=== PATIENT | male | born 1990 | race African-American/Black ===

== ENCOUNTER 2020-11-07 13:50 | Outpatient (CLI) | payer OTHER ==
[2020-11-07 14:32] LABS: BASOPHILS # (AUTO) 0.1 10^3/uL (0.0-0.1); BASOPHILS % (AUTO) 0.6 %; EOSINOPHILS # (AUTO) 0.2 10^3/uL (0.0-0.7); EOSINOPHILS % (AUTO) 2.1 %; HCT - HEMATOCRIT 36.9 % (42.0-52.0); LYMPHOCYTES # (AUTO) 2.5 10^3/uL (1.5-3.5); LYMPHOCYTES % (AUTO) 23.1 %; MEAN CORPUSCULAR HEMOGLOBIN 26.9 pg (27.0-31.0); MEAN CORPUSCULAR HGB CONC 32.5 g/dL (32.0-36.0); MEAN CORPUSCULAR VOLUME 82.7 fL (80.0-94.0); MEAN PLATELET VOLUME 10.9 fL (7.4-11.4); MONOCYTES # (AUTO) 0.8 10^3/uL (0.0-1.0); MONOCYTES % (AUTO) 7.8 %; NEUTROPHILS # (AUTO) 7.2 10^3/uL (1.5-6.6); NEUTROPHILS % (AUTO) 66.1 %; PLT - PLATELET COUNT 362 10^3/uL (130-450); RED BLOOD COUNT 4.46 10^6/uL (4.70-6.10); RED CELL DISTRIBUTION WIDTH 13.2 % (12.0-15.0); WHITE BLOOD COUNT 10.8 x10^3/uL (4.8-10.8)
[2020-11-07 14:40] LABS: ALBUMIN 3.6 g/dL (3.2-5.5); ALBUMIN/GLOBULIN RATIO 0.9 (1.0-2.2); BILIRUBIN,TOTAL 0.2 mg/dL (0.2-1.0); CALCIUM 9.3 mg/dL (8.5-10.3); CREATININE 1.5 mg/dL (0.6-1.2); TOTAL PROTEIN 7.4 g/dL (6.7-8.2)
[2020-11-07 20:23] LABS: ESTIMATED AVERAGE GLUCOSE 171 mg/dL (70-100); HEMOGLOBIN A1c% 7.6 % (4.27-6.07)
== END 2020-11-07 23:59 | disposition home or self-care (01) ==
LOC: LAB.R 13:50
PROVIDERS: ATTEND Registered Nurse
DX: R79.89 Other specified abnormal findings of blood chemistry (principal); R68.89 Other general symptoms and signs; R73.09 Other abnormal glucose
CPT/HCPCS: 80053; 83036; 85025

== ENCOUNTER 2020-11-12 09:50 | Outpatient (CLI) | payer OTHER ==
[2020-11-12 10:54] LABS: % IRON SATURATION 29 % (20-50); IRON 78 ug/dL (45-182); TOTAL IRON BINDING CAPACITY 265 ug/dL (250-450); TRANSFERRIN 189 mg/dL (180-329)
== END 2020-11-12 23:59 | disposition home or self-care (01) ==
LOC: LAB.R 09:50
PROVIDERS: ATTEND Registered Nurse
DX: R79.89 Other specified abnormal findings of blood chemistry (principal); D58.2 Other hemoglobinopathies; E61.1 Iron deficiency
CPT/HCPCS: 82728; 83540; 84466; 85018

== ENCOUNTER 2022-12-11 14:01 | Emergency (ER) | payer MEDICAID ==
[2022-12-11] MEDS ORDERED: SODIUM CHLORIDE 0.9% 1,000 ML IV STA ×3 (14:23→16:41)
--- NOTE | 2022-12-11 14:40 | ED Physician Documentation ---
History of Present Illness - Stated complaint Stated Complaint: VOMITING - Chief complaint Chief Complaint: Abd Pain - History obtained from History obtained from: Patient - History of Present Illness Timing: How many days ago (3) Pain level max: 3 Pain level now: 2 - Additonal information Additional information: Patient is a 32-year-old male who presents to the emergency department with nausea and vomiting today. Started 3 days ago after using marijuana. He is diabetic and has not been checking his blood sugars. Patient states that he uses marijuana twice daily. He denies any recent travel, antibiotic use. No diarrhea or constipation. He is on insulin 70/30 at home. Review of Systems Constitutional: denies: Fever, Chills Respiratory: denies: Dyspnea, Cough GI: reports: Abdominal Pain (Mild epigastric pain.), Nausea, Vomiting. denies: Diarrhea, Hematemesis, Bloody / black stool PD PAST MEDICAL HISTORY - Past Medical History Past Medical History: Yes Cardiovascular: Hypertension, High cholesterol Endocrine/Autoimmune: Type 2 diabetes - Past Surgical History Past Surgical History: No - Present Medications Home Medications: Ambulatory Orders Medication Instructions Recorded Confirmed Ondansetron Odt [Zofran] 4 mg TL Q6H PRN #20 tablet 12/11/22 - Allergies Allergies/Adverse Reactions: Allergies Allergy/AdvReac Type Severity Reaction Status Date / Time diphenhydramine Allergy Edema Verified 12/11/22 14:18 [From Benadryl] Iodinated Contrast Media Allergy Edema Verified 12/11/22 14:18 shellfish derived Allergy Edema Verified 12/11/22 14:18 PD ED PE NORMAL - Vitals Vital signs reviewed: Yes - General General: Alert and oriented X 3, No acute distress - HEENT HEENT: PERRL, Moist mucous membranes - Neck Neck: Supple, no meningeal sign - Cardiac Cardiac: RRR, Strong equal pulses - Respiratory Respiratory: No respiratory distress, Clear bilaterally - Abdomen Abdomen: Soft, Non tender, Non distended - Back Back: No CVA TTP, No spinal TTP - Derm Derm: Warm and dry, No rash - Extremities Extremities: No edema, No calf tenderness / cord - Neuro Neuro: Alert and oriented X 3 - Psych Psych: Normal mood, Normal affect Results - Vitals Vitals: Vital Signs - 24 hr 12/11/22 12/11/22 12/11/22 14:14 15:08 17:43 Temperature 36.4 C L Heart Rate 109 H 81 101 H Respiratory 18 18 18 Rate Blood Pressure 157/95 H 160/94 H 197/105 H O2 Saturation 99 100 100 Oxygen O2 Source Room air - Labs Labs: Laboratory Tests 12/11/22 12/11/22 12/11/22 14:20 14:49 14:49 WBC 10.7 RBC 5.31 Hgb 13.4 L Hct 42.6 MCV 80.2 MCH 25.2 L MCHC 31.5 L RDW 13.2 Plt Count 334 MPV 12.5 H Neut # (Auto) 8.0 H Lymph # (Auto) 2.0 [place] # (Auto) 0.6 Eos # (Auto) 0.1 Baso # (Auto) 0.0 Absolute Nucleated RBC 0.00 Nucleated RBC % 0.0 VBG pH VBG pCO2 VBG pO2 VBG HCO3 VBG Total CO2 VBG O2 Saturation VBG Base Excess Sodium 137 Potassium 4.3 Chloride 98 L Carbon Dioxide 25 Anion Gap 14.0 H BUN 15 Creatinine 1.8 H Estimated GFR (MDRD) 53 L Glucose 501 H* POC Whole Bld Glucose 469 H Calcium 9.3 Total Bilirubin 0.8 AST 21 ALT 32 Alkaline Phosphatase 103 Total Protein 7.8 Albumin 3.1 L Globulin 4.7 H Albumin/Globulin Ratio 0.7 L Lipase 28 Urine Color Urine Clarity Urine pH Ur Specific [place] Urine Protein Urine Glucose (UA) Urine Ketones Urine Occult Blood Urine Nitrite Urine Bilirubin Urine Urobilinogen Ur Leukocyte Esterase Urine RBC Urine WBC Ur Squamous Epith Cells Urine Bacteria Urine Casts Ur Microscopic Review Urine Culture Comments Serum Ketones SMALL H 12/11/22 12/11/22 12/11/22 14:49 16:15 16:55 WBC RBC Hgb Hct MCV MCH MCHC RDW Plt Count MPV Neut # (Auto) Lymph # (Auto) [place] # (Auto) Eos # (Auto) Baso # (Auto) Absolute Nucleated RBC Nucleated RBC % VBG pH 7.331 VBG pCO2 46.0 VBG pO2 34.8 VBG HCO3 23.8 VBG Total CO2 25.2 VBG O2 Saturation 67.1 VBG Base Excess -2.4 L Sodium Potassium Chloride Carbon Dioxide Anion Gap BUN Creatinine Estimated GFR (MDRD) Glucose POC Whole Bld Glucose 347 H Calcium Total Bilirubin AST ALT Alkaline Phosphatase Total Protein Albumin Globulin Albumin/Globulin Ratio Lipase Urine Color YELLOW Urine Clarity HAZY Urine pH 5.5 Ur Specific [place] 1.020 Urine Protein 100 H Urine Glucose (UA) >=1000 H Urine Ketones >=80 H Urine Occult Blood SMALL H Urine Nitrite NEGATIVE Urine Bilirubin NEGATIVE Urine Urobilinogen 0.2 (NORMAL) Ur Leukocyte Esterase NEGATIVE Urine RBC 0-5 Urine WBC 0-3 Ur Squamous Epith Cells FEW Squamous Urine Bacteria Few Urine Casts 3-5 Hyaline Casts Ur Microscopic Review INDICATED Urine Culture Comments NOT INDICATED Serum Ketones PD Medical Decision Making - ED course Complexity details: reviewed results, re-evaluated patient, considered differential, d/w patient, d/w family ED course: 32-year-old male with a history of diabetes presents with vomiting. He does use marijuana twice daily. He has not had any fevers. He was given droperidol and IV fluids. Nausea and vomiting resolved. Abdominal pain resolved. He was given insulin IV and subcu. Blood sugar decreased from 500 down to 340. He is not significantly acidotic. Did have a small ketones. No significant anion gap. As his other symptoms have resolved and is tolerating p.o. without difficulty we will have him continue to monitor his blood sugars at home and have him resume his normal insulin. We will have him follow-up with his doctor for further care. Patient will return if he worsens. Patient counseled regarding signs and symptoms for which I believe and urgent re-evaluation would be necessary. Patient with good understanding of and agreement to plan and is comfortable going home at this time This document was made in part using voice recognition software. While efforts are made to proofread this document, sound alike and grammatical errors may occur. Departure - Departure Disposition: 01 Home, Self Care Clinical Impression: Hyperglycemia Vomiting Qualifiers: Vomiting type: unspecified Nausea presence: with nausea Qualified Code(s): R11.2 - Nausea with vomiting, unspecified Condition: Good Instructions: ED Hyperglycemia Diabetic, ED Nausea Vomiting Follow-Up: Your,doctor in 3 days [Other] Prescriptions: Ondansetron Odt [Zofran] 4 mg TL Q6H PRN #20 tablet PRN Reason: Nausea / Vomiting Comments: Go home and rest today. Resume your normal insulin. Please follow-up with your doctor for further care. Please return if you worsen including further vomiting, abdominal pain, fevers or other new or worrisome symptoms. Your prescriptions were sent to [facility] in [place]. Discharge Date/Time: 12/11/22 17:43
[2022-12-11] MEDS ORDERED: DROPERIDOL 5 MG/2 ML VIAL IVP STA (14:52)
[2022-12-11 15:01] LABS: BASOPHILS % (AUTO) 0.3 %; EOSINOPHILS # (AUTO) 0.1 10^3/uL (0.0-0.7); EOSINOPHILS % (AUTO) 0.8 %; HCT - HEMATOCRIT 42.6 % (42.0-52.0); HGB - HEMOGLOBIN 13.4 g/dL (14.0-18.0); LYMPHOCYTES % (AUTO) 18.6 %; MEAN CORPUSCULAR HEMOGLOBIN 25.2 pg (27.0-31.0); MEAN CORPUSCULAR HGB CONC 31.5 g/dL (32.0-36.0); MEAN CORPUSCULAR VOLUME 80.2 fL (80.0-94.0); MEAN PLATELET VOLUME 12.5 fL (7.4-11.4); MONOCYTES # (AUTO) 0.6 10^3/uL (0.0-1.0); MONOCYTES % (AUTO) 5.5 %; NEUTROPHILS % (AUTO) 74.3 %; PLT - PLATELET COUNT 334 10^3/uL (130-450); RED BLOOD COUNT 5.31 10^6/uL (4.70-6.10); RED CELL DISTRIBUTION WIDTH 13.2 % (12.0-15.0); WHITE BLOOD COUNT 10.7 x10^3/uL (4.8-10.8)
[2022-12-11 15:04] LABS: VBG HCO3 23.8 mmol/L (23-28); VBG PH 7.331 (7.31-7.41); VBG PO2 34.8 mmHg (25-47); VBG TOTAL CO2 25.2 mmol/L (24-29)
[2022-12-11 15:05] LABS: VBG BASE EXCESS -2.4 mmol/L (-2 - +2); VBG OXYGEN SATURATION 67.1 % (60-80)
[2022-12-11 15:06] LABS: KETONES, SERUM (ACETEST) SMALL (NEGATIVE)
[2022-12-11 15:19] LABS: ALBUMIN 3.1 g/dL (3.2-5.5); ALBUMIN/GLOBULIN RATIO 0.7 (1.0-2.2); ALKALINE PHOSPHATASE 103 IU/L (42-121); ALT ALANINE AMINOTRANSFERASE 32 IU/L (10-60); AST ASPARTATE AMINOTRANSFERASE 21 IU/L (10-42); BILIRUBIN,TOTAL 0.8 mg/dL (0.2-1.0); BUN - BLOOD UREA NITROGEN 15 mg/dL (6-20); CALCIUM 9.3 mg/dL (8.5-10.3); CARBON DIOXIDE - CO2 25 mmol/L (21-32); CHLORIDE 98 mmol/L (101-111); CREATININE 1.8 mg/dL (0.6-1.2); GFR - MDRD 53 (>89); LIPASE 28 U/L (22-51); POTASSIUM 4.3 mmol/L (3.5-5.0); SODIUM 137 mmol/L (135-145); TOTAL PROTEIN 7.8 g/dL (6.7-8.2)
[2022-12-11 15:21] LABS: GLUCOSE 501 mg/dL (70-100)
[2022-12-11] MEDS ORDERED: INSULIN REGULAR HUMAN 300 UNIT/3 ML VIAL SUBQ STA (15:43)
[2022-12-11] MEDS ORDERED: INSULIN REGULAR HUMAN 300 UNIT/3 ML VIAL IVP ONE (15:43)
[2022-12-11 16:25] LABS: BILIRUBIN,URINE NEGATIVE (NEGATIVE); GLUCOSE, URINE (UA) >=1000 mg/dL (NEGATIVE); KETONES,URINE (UA) >=80 mg/dL (NEGATIVE); LEUKOCYTE ESTERASE, URINE NEGATIVE (NEGATIVE); NITRITE,URINE NEGATIVE (NEGATIVE); OCCULT BLOOD,URINE SMALL (NEGATIVE); PH,URINE 5.5 PH (5.0-7.5); PROTEIN,URINE 100 mg/dL (NEGATIVE); UROBILINOGEN,URINE 0.2 (NORMAL) E.U./dL (NORMAL)
[2022-12-11 16:27] LABS: CLARITY,URINE HAZY (CLEAR)
[2022-12-11 16:44] LABS: BACTERIA,URINE Few /HPF (None Seen); CASTS, URINE 3-5 Hyaline Casts /LPF; RBC,URINE 0-5 /HPF (0-5); SQUAMOUS EPITHELIAL CELL,UR FEW Squamous (<= Few); WBC,URINE 0-3 /HPF (0-3)
[2022-12-11 17:45] VITALS: BP 197/105
== END 2022-12-11 17:43 | disposition home or self-care (01) ==
LOC: ED 14:01
DX: E11.65 Type 2 diabetes mellitus with hyperglycemia (principal); R11.2 Nausea with vomiting, unspecified; I10 Essential (primary) hypertension
CPT/HCPCS: 36415; 80053; 81001; 82009; 82803; 83690; 85025; 96361; 96374; 99283; 99284; J1815; 81003; 87086

== ENCOUNTER 2022-12-23 23:40 | Outpatient (CLI) | payer MEDICAID | END 2022-12-23 23:59 | disposition critical access hospital (66) | LOC: EMS 23:40 | DX: E11.65 Type 2 diabetes mellitus with hyperglycemia (principal); R41.0 Disorientation, unspecified; R53.83 Other fatigue; R52 Pain, unspecified; R00.0 Tachycardia, unspecified | CPT/HCPCS: A0425; A0427; A0999 ==

== ENCOUNTER 2022-12-23 23:58 | Inpatient (IN) | payer MEDICAID ==
--- NOTE | 2022-12-24 00:14 | ED Physician Documentation ---
History of Present Illness - Stated complaint Stated Complaint: AMS HIGH BS - History obtained from History obtained from: EMS - Additonal information Additional information: Patient is brought in by ambulance. HPI is from EMS. Patient is unable to contribute to HPI/ROS due to AMS. Per EMS report, patient's brother said that the patient had been complaining of upper abdominal pain and was exhibiting decreasing mental status today. EMS arrived to find patient drowsy and oriented x1. Patient is diabetic. Fingerstick blood sugar by EMS is greater than 600. Review of Systems Unable to obtain: AMS PD PAST MEDICAL HISTORY - Past Medical History Cardiovascular: Hypertension, High cholesterol Endocrine/Autoimmune: Type 2 diabetes - Past Surgical History Past Surgical History: No - Present Medications Home Medications: Ambulatory Orders Medication Instructions Recorded Confirmed Ondansetron Odt [Zofran] 4 mg TL Q6H PRN #20 tablet 12/11/22 - Allergies Allergies/Adverse Reactions: Allergies Allergy/AdvReac Type Severity Reaction Status Date / Time diphenhydramine Allergy Edema Verified 12/24/22 00:18 [From Benadryl] Iodinated Contrast Media Allergy Edema Verified 12/24/22 00:18 shellfish derived Allergy Edema Verified 12/24/22 00:18 PD ED PE NORMAL - Vitals Vital signs reviewed: Yes - General General: No acute distress, Well developed/nourished, Other (Drowsy, awakens briefly to voice but occasionally needs gentle tactile stimulus to awaken. Falls asleep repeatedly and rapidly. Answers some questions very briefly with mumbling answers. He is able to give me his last name, knows he is in a hospital but not which one, has no guess as to wha) - HEENT HEENT: PERRL, EOMI, Other (parched mucous membranes) - Cardiac Cardiac: No murmur - Respiratory Respiratory: No respiratory distress, Clear bilaterally - Abdomen Abdomen: Soft, Non tender - Derm Derm: Normal color, Warm and dry - Extremities Extremities: No edema PD ED PE EXPANDED - Cardiac Cardiac: Tachy, Regular Rhythm - GCS Eye Opening: To Voice Motor: Obeys Commands (obeys few commands) Verbal: Incomprehensible Total: 11 Results - Vitals Vitals: Oxygen O2 Source Room air - Labs Labs: Laboratory Tests 12/24/22 12/24/22 12/24/22 01:45 01:45 04:04 WBC 23.2 H RBC 5.84 Hgb 14.7 Hct 49.8 MCV 85.3 MCH 25.2 L MCHC 29.5 L RDW 15.0 Plt Count 373 MPV 13.2 H Neut # (Auto) Not Reportable Lymph # (Auto) Not Reportable [place] # (Auto) Not Reportable Eos # (Auto) Not Reportable Baso # (Auto) Not Reportable Absolute Nucleated RBC Not Reportable Total Counted 100 Band Neuts % (Manual) 2 Abnorm Lymph % (Manual) 0 Metamyelocytes % 1 H Myelocytes % 1 H Nucleated RBC % Not Reportable Neutrophils # (Manual) 20.6 H Lymphocytes # (Manual) 1.9 Monocytes # (Manual) 0.0 Eosinophils # (Manual) 0.2 Basophils # (Manual) 0.0 Differential Comment MANUAL DIFFERENTIAL Platelet Estimate NORMAL (130-450,000) RBC Morph Micro Appear NORMAL APPEARANCE VBG pH 7.203 L VBG pCO2 39.4 L VBG pO2 37.5 VBG HCO3 15.2 L VBG Total CO2 16.4 L VBG O2 Saturation 69.0 VBG Base Excess -12.2 L Sodium 138 Potassium 5.5 H Chloride 102 Carbon Dioxide 12 L* Anion Gap 24.0 H BUN 77 H Creatinine 4.0 H Estimated GFR (MDRD) 21 L Glucose 1234 H* Calcium 9.8 Total Bilirubin 1.5 H AST 11 ALT 20 Alkaline Phosphatase 127 H Troponin I High Sens Total Protein 8.2 Albumin 3.1 L Globulin 5.1 H Albumin/Globulin Ratio 0.6 L Lipase 39 Serum Ketones MODERATE H 12/24/22 12/24/22 12/24/22 04:04 05:30 06:24 WBC RBC Hgb Hct MCV MCH MCHC RDW Plt Count MPV Neut # (Auto) Lymph # (Auto) [place] # (Auto) Eos # (Auto) Baso # (Auto) Absolute Nucleated RBC Total Counted Band Neuts % (Manual) Abnorm Lymph % (Manual) Metamyelocytes % Myelocytes % Nucleated RBC % Neutrophils # (Manual) Lymphocytes # (Manual) Monocytes # (Manual) Eosinophils # (Manual) Basophils # (Manual) Differential Comment Platelet Estimate RBC Morph Micro Appear VBG pH VBG pCO2 VBG pO2 VBG HCO3 VBG Total CO2 VBG O2 Saturation VBG Base Excess Sodium 146 H 146 H 148 H Potassium 4.2 3.9 3.8 Chloride 110 113 H 113 H Carbon Dioxide 17 L 19 L 21 Anion Gap 19.0 H 14.0 H 14.0 H BUN 76 H 72 H 73 H Creatinine 3.9 H 3.7 H 3.7 H Estimated GFR (MDRD) 22 L 23 L 23 L Glucose 1041 H* 912 H* 866 H* Calcium 9.7 9.7 9.8 Total Bilirubin AST ALT Alkaline Phosphatase Troponin I High Sens Total Protein Albumin Globulin Albumin/Globulin Ratio Lipase Serum Ketones 12/24/22 12/24/22 07:32 07:33 WBC RBC Hgb Hct MCV MCH MCHC RDW Plt Count MPV Neut # (Auto) Lymph # (Auto) [place] # (Auto) Eos # (Auto) Baso # (Auto) Absolute Nucleated RBC Total Counted Band Neuts % (Manual) Abnorm Lymph % (Manual) Metamyelocytes % Myelocytes % Nucleated RBC % Neutrophils # (Manual) Lymphocytes # (Manual) Monocytes # (Manual) Eosinophils # (Manual) Basophils # (Manual) Differential Comment Platelet Estimate RBC Morph Micro Appear VBG pH VBG pCO2 VBG pO2 VBG HCO3 VBG Total CO2 VBG O2 Saturation VBG Base Excess Sodium 148 H Potassium 4.6 Chloride 114 H Carbon Dioxide 21 Anion Gap 13.0 BUN 75 H Creatinine 3.6 H Estimated GFR (MDRD) 24 L Glucose 844 H* Calcium 10.0 Total Bilirubin AST ALT Alkaline Phosphatase Troponin I High Sens 48.9 H* Total Protein Albumin Globulin Albumin/Globulin Ratio Lipase Serum Ketones PD Medical Decision Making - ED course Complexity details: reviewed results, re-evaluated patient, considered differential, d/w family (mother of patient arrives later in ED stay, says patient has not been eating all day but drinking more fluids than usual) ED course: Patient presents with severely altered mental status and fingerstick that is g reater than 600 by EMS. He is found to be in DKA. He has significant leukocytosis (WBC 23.2). His serum glucose on the ER abdominal panel is 1234, potassium is 5.5, CO2 12. He has significantly elevated BUN (77) and creatinine (4.0). Serum ketones return as moderate. VBG was unable to be obtained due to patient being a difficult stick. He arrived with an IV in place by EMS, but the nurses had difficulty getting a second IV placed (which was also challenging with the volume of patients in the emergency department and limited staff available). Shortly after the second IV was placed, the patient, who remained confused, ripped out this second IV. Soft restraints (nonviolent) placed on bilateral upper extremities for this reason. And insulin drip is started after a 0.1 unit/kg bolus of regular insulin is given. 3 L normal saline bolus is also ordered and administered. I put in a request for a telehealth consult to get this patient admitted at 03:08. I contacted the telehealth service for [facility] at 03:38 to inquire as to why I had not heard from telehealth practitioner. I was told that they were very busy and had several patients to get admitted to other hospitals before they could get to my patient. Approximately 10 minutes later, my REGIONAL ENVIRONMENTAL MANAGER received a call from the telehealth service informing her that they would not be able to get to this patient and recommended holding the patient until the dayshift hospitalist can be consulted. Thus, although there are beds available in [facility], patient will be held for at least another 3 hours in the emergency department waiting for the daytime hospitalist. 06:20: patient is becoming more awake and alert but also remains confused, appears anxious. He is given 1mg IV lorazepam for anxiolysis. Note that, 0605, I ordered 0.45% saline with 20 mEq KCl to be given over 2 hours. The decision to switch to half-normal saline is based on the corrected sodium (based on the blood test results from 5:30 AM), with the corrected sodium level being 162. I was then informed that we do not have this available premixed, and there is no pharmacist in-house at this hour. Thus, I canceled that order and am instead ordering normal saline with 20 mEq KCl over 2 hours. - Critical Care Time(min): 60 Time Includes: Direct patient care, Review records, Reassess patient, Document care, Coordinate care, Family consult for tx dec, See progress note Data interpretation: Labs, Pulse ox, CXR, See progress note Procedures included in critical care time: See progress note Procedures excluded from critical care time: See progress note Departure - Departure Disposition: 66 [facility] DC/Xfer Clinical Impression: Diabetic ketoacidosis Qualifiers: Diabetes mellitus type: type 1 Diabetes mellitus complication detail: without coma Qualified Code(s): E10.10 - Type 1 diabetes mellitus with ketoacidosis without coma Condition: Serious Discharge Date/Time: 12/24/22 08:57
[2022-12-24] MEDS ORDERED: INSULIN REGULAR HUMAN 300 UNIT/3 ML VIAL IVP STA (00:20)
[2022-12-24] MEDS ORDERED: INSULIN REGULAR IN 0.9 % NS 100 UNIT/100 ML BAG IV STA (00:20)
[2022-12-24] MEDS: SODIUM CHLORIDE 0.9% 1,000 ML IV SCH ×3 (00:39→02:43)
[2022-12-24 02:00] LABS: BASOPHILS % (AUTO) 0.2 %; HCT - HEMATOCRIT 49.8 % (42.0-52.0); HGB - HEMOGLOBIN 14.7 g/dL (14.0-18.0); LYMPHOCYTES % (AUTO) 3.7 %; MEAN CORPUSCULAR HEMOGLOBIN 25.2 pg (27.0-31.0); MEAN CORPUSCULAR HGB CONC 29.5 g/dL (32.0-36.0); MEAN CORPUSCULAR VOLUME 85.3 fL (80.0-94.0); MEAN PLATELET VOLUME 13.2 fL (7.4-11.4); MONOCYTES % (AUTO) 3.9 %; NEUTROPHILS % (AUTO) 91.2 %; PLT - PLATELET COUNT 373 10^3/uL (130-450); RED BLOOD COUNT 5.84 10^6/uL (4.70-6.10); WHITE BLOOD COUNT 23.2 x10^3/uL (4.8-10.8)
[2022-12-24 02:02] LABS: ABNORMAL LYMPHS % (MANUAL) 0 %
[2022-12-24 02:22] LABS: BAND NEUTROPHILS % (MANUAL) 2 %; DIFFERENTIAL COMMENT MANUAL DIFFERENTIAL; EOSINOPHILS # (MANUAL) 0.2 10^3/uL (0-0.7); LYMPHOCYTES # (MANUAL) 1.9 10^3/uL (1.5-3.5); LYMPHOCYTES % (MANUAL) 8 %; METAMYELOCYTES % (MANUAL) 1 %; MYELOCYTES % (MANUAL) 1 %; NEUTROPHILS # (MANUAL) 20.6 10^3/uL (1.5-6.6); PLATELET ESTIMATE, MANUAL NORMAL (130-450,000) (NORMAL); RBC MORPHOLOGY (MULTIPLE) NORMAL APPEARANCE (NORMAL)
[2022-12-24 03:04] LABS: ALBUMIN 3.1 g/dL (3.2-5.5); ALBUMIN/GLOBULIN RATIO 0.6 (1.0-2.2); ALKALINE PHOSPHATASE 127 IU/L (42-121); ALT ALANINE AMINOTRANSFERASE 20 IU/L (10-60); AST ASPARTATE AMINOTRANSFERASE 11 IU/L (10-42); BILIRUBIN,TOTAL 1.5 mg/dL (0.2-1.0); BUN - BLOOD UREA NITROGEN 77 mg/dL (6-20); CALCIUM 9.8 mg/dL (8.5-10.3); CHLORIDE 102 mmol/L (101-111); GFR - MDRD 21 (>89); LIPASE 39 U/L (22-51); POTASSIUM 5.5 mmol/L (3.5-5.0); SODIUM 138 mmol/L (135-145); TOTAL PROTEIN 8.2 g/dL (6.7-8.2)
[2022-12-24 03:07] LABS: CARBON DIOXIDE - CO2 12 mmol/L (21-32); GLUCOSE 1234 mg/dL (70-100)
[2022-12-24 03:11] LABS: KETONES, SERUM (ACETEST) MODERATE (NEGATIVE)
[2022-12-24 04:09] LABS: VBG BASE EXCESS -12.2 mmol/L (-2 - +2); VBG HCO3 15.2 mmol/L (23-28); VBG PCO2 39.4 mmHg (41-51); VBG PH 7.203 (7.31-7.41); VBG PO2 37.5 mmHg (25-47); VBG TOTAL CO2 16.4 mmol/L (24-29)
[2022-12-24 04:25] LABS: CALCIUM 9.7 mg/dL (8.5-10.3); CREATININE 3.9 mg/dL (0.6-1.2); POTASSIUM 4.2 mmol/L (3.5-5.0)
[2022-12-24 05:51] LABS: CALCIUM 9.7 mg/dL (8.5-10.3); CREATININE 3.7 mg/dL (0.6-1.2); POTASSIUM 3.9 mmol/L (3.5-5.0)
[2022-12-24] MEDS ORDERED: POTASSIUM CHLORIDE INJ 20 MEQ in SODIUM CHLORIDE 0.45% 1,000 ML IV STA (06:05)
[2022-12-24] MEDS ORDERED: LORazepam 2 MG/ML VIAL IVP STA (06:28)
[2022-12-24] MEDS ORDERED: NS W/20 MEQ KCL 1,000 ML IV STA (06:47)
[2022-12-24 06:48] LABS: CALCIUM 9.8 mg/dL (8.5-10.3); CREATININE 3.7 mg/dL (0.6-1.2); POTASSIUM 3.8 mmol/L (3.5-5.0)
[2022-12-24 07:50] LABS: CREATININE 3.6 mg/dL (0.6-1.2); POTASSIUM 4.6 mmol/L (3.5-5.0)
[2022-12-24] MEDS ORDERED: ONDANSETRON ODT 4 MG TABLET TL PRN (08:02)
[2022-12-24] MEDS ORDERED: oxyCODONE 5 MG TABLET PO PRN (08:02)
[2022-12-24] MEDS ORDERED: ONDANSETRON 4 MG/2 ML VIAL IVP PRN (08:02)
[2022-12-24] MEDS ORDERED: ACETAMINOPHEN 325 MG TABLET PO PRN (08:02)
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
[2022-12-24] MEDS ORDERED: SODIUM CHLORIDE 0.9% 1,000 ML IV SCH (12:00)
[2022-12-24] MEDS: SODIUM CHLORIDE FLUSH 0.9% 10 ML SYRINGE IVP SCH ×3 (12:11→20:55)
[2022-12-24] MEDS: ENOXAPARIN 40 MG/0.4 ML SYRINGE SUBQ SCH (12:11)
[2022-12-24] MEDS: INSULIN REGULAR HUMAN 100 UNIT in SODIUM CHLORIDE 0.9% 100ML 99 ML IV SCH ×2 (12:25→17:13)
[2022-12-24] MEDS: DEXTROSE 5%-0.9% NACL 1,000 ML IV SCH ×2 (12:28→18:18)
[2022-12-24 13:27] LABS: POTASSIUM 4.9 mmol/L (3.5-5.0)
[2022-12-24] MEDS: POTASSIUM CHLOR 10 MEQ/100 ML 10 MEQ/100 ML BAG IV SCH ×4 (13:57→18:51)
[2022-12-24] MEDS: hydrALAZINE INJ 20 MG/ML VIAL IVP SCH ×3 (14:13→20:50)
--- NOTE | 2022-12-24 15:10 | MISCELLANEOUS PROVIDER NOTE ---
Miscellaneous Provider Note - - Note: December 24, 2022 3:09 PM I can hear patient yelling as if he echoes through the hallway. When I go investigate it Mr. Doss. He says he wants some help. But he cannot tell me what he wants. I asked him if he wants clothing, food, pain medicine, ice cream, anything. And he just says in a very frustrated voice "I just want you to help me". He is oriented to the fact that he is in the hospital. He knows that his would be. He knows that he is here because of DKA. Ativan 0.5 mg every 2 hours as needed agitation prescribed.
[2022-12-24] MEDS ORDERED: METOPROLOL 5 MG/5 ML VIAL IVP PRN (15:12)
[2022-12-24 15:16] LABS: MUDS CUTOFF CONCENTRATIONS CUTOFF CONC BELOW:
[2022-12-24 15:28] LABS: AMPHETAMINE SCREEN,URINE NEGATIVE (NEGATIVE); BARBITURATE SCREEN,UR NEGATIVE (NEGATIVE); BENZODIAZEPINES SCREEN, URINE NEGATIVE (NEGATIVE); COCAINE SCREEN URINE NEGATIVE (NEGATIVE); METHADONE SCREEN, URINE NEGATIVE (NEGATIVE); METHAMPHETAMINES SCREEN, URINE NEGATIVE (NEGATIVE); OPIATE SCREEN, URINE NEGATIVE (NEGATIVE); OXYCODONE SCREEN, URINE NEGATIVE (NEGATIVE); PROPOXYPHENE SCREEN, URINE NEGATIVE (NEGATIVE); THC CANNABINOID SCREEN, URINE POSITIVE (NEGATIVE); TRICYCLIC ANTIDEPRESSANT,URINE NEGATIVE (NEGATIVE)
[2022-12-24] MEDS: LORazepam 2 MG/ML VIAL IVP PRN ×3 (15:37→21:39)
[2022-12-24 18:55] LABS: ALBUMIN 2.9 g/dL (3.2-5.5); ALBUMIN/GLOBULIN RATIO 0.7 (1.0-2.2); BILIRUBIN,TOTAL 0.6 mg/dL (0.2-1.0); CALCIUM 9.5 mg/dL (8.5-10.3); CREATININE 3.1 mg/dL (0.6-1.2); POTASSIUM 4.1 mmol/L (3.5-5.0); TOTAL PROTEIN 7.2 g/dL (6.7-8.2)
[2022-12-24] MEDS: DEXTROSE 5% 1,000 ML IV SCH (19:37)
[2022-12-24 20:37] LABS: BILIRUBIN,URINE NEGATIVE (NEGATIVE); GLUCOSE, URINE (UA) >=1000 mg/dL (NEGATIVE); KETONES,URINE (UA) TRACE mg/dL (NEGATIVE); LEUKOCYTE ESTERASE, URINE NEGATIVE (NEGATIVE); NITRITE,URINE NEGATIVE (NEGATIVE); OCCULT BLOOD,URINE SMALL (NEGATIVE); PROTEIN,URINE 100 mg/dL (NEGATIVE); UROBILINOGEN,URINE 0.2 (NORMAL) E.U./dL (NORMAL)
[2022-12-24 20:44] LABS: CLARITY,URINE HAZY (CLEAR)
[2022-12-24 20:48] LABS: RBC,URINE 0-5 /HPF (0-5); SQUAMOUS EPITHELIAL CELL,UR NONE SEEN (<= Few); WBC,URINE 0-3 /HPF (0-3)
[2022-12-24 20:49] LABS: AMORPHOUS SEDIMENT,UR Few /LPF; BACTERIA,URINE Few /HPF (None Seen); CASTS, URINE 11-25 Fine Granular /LPF
[2022-12-24] MEDS ORDERED: INSULIN LISPRO 300 UNIT/3 ML PEN SUBQ SCH (21:00)
[2022-12-24] MEDS ORDERED: INSULIN GLARGINE-YFGN 300 UNIT/3 ML PEN SUBQ SCH (21:00)
[2022-12-24] MEDS: SODIUM CHLORIDE FLUSH 0.9% 10 ML SYRINGE IVP PRN (21:43)
[2022-12-25] MEDS: LORazepam 2 MG/ML VIAL IVP PRN (03:07)
[2022-12-25] MEDS: SODIUM CHLORIDE FLUSH 0.9% 10 ML SYRINGE IVP PRN ×2 (03:14→03:22)
[2022-12-25] MEDS: DEXTROSE 5% 1,000 ML IV SCH ×5 (03:46→21:40)
[2022-12-25 04:47] LABS: BASOPHILS % (AUTO) 0.3 %; EOSINOPHILS # (AUTO) 0.1 10^3/uL (0.0-0.7); EOSINOPHILS % (AUTO) 0.4 %; HCT - HEMATOCRIT 42.6 % (42.0-52.0); HGB - HEMOGLOBIN 14.1 g/dL (14.0-18.0); LYMPHOCYTES # (AUTO) 1.8 10^3/uL (1.5-3.5); LYMPHOCYTES % (AUTO) 11.4 %; MEAN CORPUSCULAR HGB CONC 33.1 g/dL (32.0-36.0); MEAN CORPUSCULAR VOLUME 78.5 fL (80.0-94.0); MEAN PLATELET VOLUME 12.3 fL (7.4-11.4); MONOCYTES # (AUTO) 1.4 10^3/uL (0.0-1.0); MONOCYTES % (AUTO) 8.7 %; NEUTROPHILS # (AUTO) 12.6 10^3/uL (1.5-6.6); NEUTROPHILS % (AUTO) 78.9 %; NRBC ABSOLUTE COUNT (AUTO) 0.03 x10^3/uL; NUCLEATED RED BLOOD CELLS AUTO 0.2 /100WBC; PLT - PLATELET COUNT 229 10^3/uL (130-450); RED BLOOD COUNT 5.43 10^6/uL (4.70-6.10); RED CELL DISTRIBUTION WIDTH 15.1 % (12.0-15.0)
[2022-12-25 05:09] LABS: CALCIUM 9.2 mg/dL (8.5-10.3); CREATININE 2.7 mg/dL (0.6-1.2); MAGNESIUM 2.6 mg/dL (1.7-2.8); POTASSIUM 4.1 mmol/L (3.5-5.0)
[2022-12-25 05:13] LABS: CALCIUM, IONIZED 1.28 mmol/L (1.15-1.33); VBG PH 7.355 (7.31-7.41)
--- NOTE | 2022-12-25 07:48 | XRAY Report ---
PROCEDURE: Chest 1 View X-Ray INDICATIONS: leukocytosis TECHNIQUE: One view of the chest was acquired. COMPARISON: None. FINDINGS: Surgical changes and devices: None. Lungs and pleura: No pleural effusions or pneumothorax. Lungs are clear. Mediastinum: Mediastinal contours appear normal. Heart size is normal. Bones and chest wall: No suspicious bony lesions. Overlying soft tissues appear unremarkable. IMPRESSION: No acute process. Reviewed by: Emma Da Silva MD on 12/25/2022 7:46 AM PDT Approved by: Emma Da Silva MD on 12/25/2022 7:46 AM PDT Station ID: [id number]
[2022-12-25] MEDS ORDERED: INSULIN GLARGINE-YFGN 300 UNIT/3 ML PEN SUBQ SCH ×2 (08:00→21:00)
[2022-12-25] MEDS: ENOXAPARIN 40 MG/0.4 ML SYRINGE SUBQ SCH (08:24)
[2022-12-25] MEDS: SODIUM CHLORIDE FLUSH 0.9% 10 ML SYRINGE IVP SCH ×2 (08:58→16:19)
[2022-12-25] MEDS: hydrALAZINE INJ 20 MG/ML VIAL IVP SCH ×3 (08:58→21:40)
[2022-12-25] MEDS: INSULIN REGULAR HUMAN 300 UNIT/3 ML VIAL SUBQ SCH ×4 (09:05→23:31)
[2022-12-25] MEDS: POTASSIUM PHOSPHATE 15 MMOL in DEXTROSE 5% 250 ML IV SCH ×2 (10:54→16:00)
[2022-12-25 13:21] LABS: CALCIUM 8.8 mg/dL (8.5-10.3); CREATININE 2.6 mg/dL (0.6-1.2); POTASSIUM 4.4 mmol/L (3.5-5.0)
--- NOTE | 2022-12-25 13:54 | PROVIDER PROGRESS NOTE ---
Progress Note December 25, 2022 1:01 PM Since I ordered Ativan yesterday, he has received 4 doses of 0.5 mg IV push. Last dose was 3 in the morning. He has been sleeping all day long. He cannot stay awake long enough to eat. He keeps on saying that he would like to go home but we have explained to him that he needs to stay awake long enough to eat, shows that he has the wherewithal to get up and walk to a bathroom and get back in bed. So far he has been unable to do that. He still continues to pull at his IV line. Yesterday afternoon, in spite of be ing in restraints, he leaned down, and using his teeth pulled out his IV. This morning he has 1 IV left in the right arm. The left arm IV has blown. I have seen him 3 times today. With the dictation of this note, he is sitting upright in bed, staring out the window, sleepy. This is in spite of my reordering restraints. Active Medications Acetaminophen (Acetaminophen 325 Mg Tablet) 650 mg PO Q4HR PRN PRN Reason: Pain 1 to 4, or Fever Enoxaparin Sodium (Enoxaparin 40 Mg/0.4 Ml Syringe) 40 mg SUBQ DAILY [facility] Last Admin: 12/25/22 08:24 Dose: 40 mg Hydralazine HCl (Hydralazine Inj 20 Mg/Ml Vial) 10 mg IVP QID [facility] Last Admin: 12/25/22 08:58 Dose: 10 mg Dextrose (D5w) 1,000 mls @ 200 mls/hr IV .Q5H [facility] Last Admin: 12/25/22 08:40 Dose: 200 mls/hr Potassium Phosphate 15 mmol/ (Dextrose) 255 mls @ 63.75 mls/hr IV Q4H [facility] Stop: 12/25/22 18:59 Last Admin: 12/25/22 10:54 Dose: 63.75 mls/hr Insulin Glargine-yfgn (Insulin Glargine-Yfgn 300 Unit/3 Ml Pen) 10 unit SUBQ QDBREAKFAST [facility] Last Admin: 12/25/22 08:36 Dose: 10 unit Insulin Glargine-yfgn (Insulin Glargine-Yfgn 300 Unit/3 Ml Pen) 25 unit SUBQ QPM [facility] Last Admin: 12/24/22 20:55 Dose: 25 unit Insulin Human Regular (Insulin Regular Human 300 Unit/3 Ml Vial) 2 - 10 unit SUBQ Q6HR [facility]; Protocol Last Admin: 12/25/22 11:55 Dose: 10 unit Lorazepam (Lorazepam 2 Mg/Ml Vial) 0.5 mg IVP Q2H PRN PRN Reason: Anxiety Last Admin: 12/25/22 03:07 Dose: 0.5 mg Metoprolol Tartrate (Metoprolol 5 Mg/5 Ml Vial) 5 mg IVP Q6H PRN PRN Reason: Hypertensive Emergency Last Admin: 12/25/22 03:21 Dose: 5 mg Ondansetron HCl (Ondansetron Odt 4 Mg Tablet) 4 mg TL Q6HR PRN PRN Reason: Nausea / Vomiting Ondansetron HCl (Ondansetron 4 Mg/2 Ml Vial) 4 mg IVP Q6HR PRN PRN Reason: Nausea / Vomiting Oxycodone HCl (Oxycodone 5 Mg Tablet) 5 mg PO Q4HR PRN PRN Reason: Pain 5 to 7 Last Admin: 12/25/22 06:22 Dose: 5 mg Sodium Chloride (Sodium Chloride Flush 0.9% 10 Ml Syringe) 10 ml IVP 0100,0900,1700 [facility] Last Admin: 12/25/22 08:58 Dose: 10 ml Sodium Chloride (Sodium Chloride Flush 0.9% 10 Ml Syringe) 10 ml IVP PRN PRN PRN Reason: NEEDED PER PROVIDER ORDERS Last Admin: 12/25/22 03:22 Dose: 10 ml Exam: Temperature is 36.8. He is consistently tachycardic since 4:00 this morning. Heart rate varies between 105-114. Blood pressure 141/103. 13 respiration, 96% on room air. I have seen him twice this morning and both times he is asleep, flat on his back, snoring. He does awaken to my voice and does respond with yes no answers, but goes right back to sleep in the time I can get him awake to examine him. Skin is warm and dry. Neck is supple without JVD Lungs are clear. Again snoring. But no crackles rhonchi or wheezing or increased respiratory effort or respiratory distress Regular rate and rhythm that is tachycardic Abdomen is soft, nontender, quiet bowel sounds, last bowel movement December 21. He is incontinent of urine, wearing a diaper. Extremities are without edema. He has full range of motion. Neurologically intermittently alert and awake. Usually sleeping. Responds to my voice, will respond to commands. He has stopped yelling "help" the way he did yesterday. No focal deficits, no tremors, no diaphoresis. Glucose: Insulin drip discontinued approximately 6 PM yesterday Once he went below 200. Started on Lantus 25 and then sliding scale insulin before meals even though he is not eating. Glucose subsequent to that was 171, 107. Glucose this morning 247, glucose before lunch 363. He received 10 units of Humalog for that. The serum blood draw for the fingerstick was 429. Sodium went to 157 yesterday. I started him back on a D5 at 125 cc an hour. This morning sodium is 155. This afternoon he is 150. Anion gap started at 24 on admission with his DKA. This morning his anion gap is 6 and 5. His anion gap has been normal since yesterday. I interpret this as diabetes mellitus that may not be completely controlled but from a metabolic acidosis perspective he is stable. He was in acute renal failure on admission with a creatinine of 4. Creatinine has steadily come down with IV fluids and control of glucose. By this afternoon creatinine is 2.6. BUN is 49 with this. Calcium is 9.2, phosphorus is low at 1.0 Magnesium 2.6 Lactic acid 2.3 yesterday afternoon (he is on metformin at home) I did not recheck his lactic acid. His anion gap is closed, his CO2 is normal. I will presume that his lactic acid is now normal. A1c ordered for tomorrow. Troponin 48.9>> 55.0>> 54.4 Conclusion/Plan - Problem List (1) Diabetic ketoacidosis Conclusion/Plan: He was admitted to ICU when he was on the insulin drip. I am now going to transition him to MedSurg status. I have asked for central line from the ER provider but he feels that the patient has to peripheral IVs that should be adequate. However nursing reports that he is a very difficult blood draw. He is down to 1 IV. So far that is maintaining. However if he pulls this out will need another IV. I am hoping to avoid calling anesthesia for a midline. Currently on Lantus 25 units in the evening, 10 units subcu in the morning. He is also on moderate sliding scale. He is able to swallow, and is asking for liquids. So far he cannot stay awake long enough to eat his food.The cause of his DKA was noncompliance with medication. When he was sent home from [facility] 2 weeks ago, his family reports that he is not taking any of his insulin. I did check troponins he is not having an ID. I did a work-up for the leukocytosis present yesterday, He does not have pneumonia he does not have a UTI. Abdominal exam is benign.EKG had normal sinus rhythm. T waves were diffusely inverted. I attribute that to metabolic causes and not ischemia. Plan: Check A1c in a.m. Increase Lantus to 30 units subcu at night, and 15 units in the morning Increase sliding scale insulin to high sliding scale Pharmacy will verify what medications the patient is on. The family mentions blood pressure, diabetes, but they do not bring in the bottles nor do they remember the names. I spoke to the pharmacist. I think the most he is going to be able to do is call the [facility] and see if they have any medications on this gentleman. Encouraged him to stay awake, and to eat. I have told him that until he can eat, and demonstrate that he is awake enough and alert enough to be able to walk to the bathroom by himself, he cannot be discharged Qualifiers: Diabetes mellitus type: type 1 Diabetes mellitus complication detail: without coma Qualified Code(s): E10.10 - Type 1 diabetes mellitus with ketoacidosis without coma (2) Acute on chronic renal failure Conclusion/Plan: Appears to have already had chronic kidney disease with his visit in 2020. With his visit in the emergency room earlier this month was slightly worsening at 1.8. With this admission he is clearly in acute on chronic renal failure most likely due to prerenal azotemia and not obstruction. Nevertheless I will check renal ultrasound to make sure he is not obstructed Follow BMP daily Avoid nephrotoxic agents. I was considering giving him enalapril to control his blood pressure but in the face of acute renal failure I would like to avoid LACIE inhibitors. Qualifiers: Acute renal failure type: with acute tubular necrosis Chronic kidney diseas e stage: stage 3 (moderate) Chronic kidney disease stage 3 subtype: unspecified whether 3a or 3b Qualified Code(s): N17.0 - Acute kidney failure with tubular necrosis; N18.30 - Chronic kidney disease, stage 3 unspecified (3) Leukocytosis Conclusion/Plan: The emergency room provider had focused on the patient's DKA and its treatment. I will try and figure out why the patient went into DKA. By history, is because of noncompliance. He has not taken any of his insulin since he has been home from [facility]. But with a leukocytosis of 1 to make sure that he does not have a UTI or pneumonia. As such I will be checking chest x-ray and urinalysis. Qualifiers: Leukocytosis type: leukemoid reaction Qualified Code(s): D72.823 - Leukemoid reaction (4) Hypertension Conclusion/Plan: This gentleman is a diabetic, and hypertensive. His brother does not know if the patient is on blood pressure pills or not but the patient does have a history of high blood pressure. I had hoped to start him on an LACIE inhibitor, but with his renal function so badly affected, I will hold off on that. Plan: Lopressor 5 mg IV push as needed systolic greater than 160. Once he is awake, alert, and creatinine has come down below 2, will start losartan or Vasotec Qualifiers: Hypertension type: renovascular hypertension Qualified Code(s): I15.0 - Renovascular hypertension (5) Encephalopathy acute Conclusion/Plan: My suspicion is the worsening dehydration, and DKA has caused this problem. His family states that he is usually a independent gentleman, can feed himself, dress himself. Thought process is usually lucid, and able to problem solve. Yesterday,he was lethargic, occasionally opening his eyes, and does things like in having to get up and urinate, he would pull down his diaper and urinate spontaneously with urine going all over the bed, the patient, the floor and the nurse. He needs intermittent prompts to stay in bed. He continues to need prompting for safety reasons. He keeps on wanting to try and get out of bed. He is still sleepy. I have asked nursing to avoid more than 2 doses of Ativan at night. He has not received anything this morning. his mother and brother were at the bedside this afternoon. They really are worried about his sleeping and his snoring. By later in the afternoon he was more awake. He still keeps on trying to get out of bed. Still keeps on trying to pull out his IV. Mom really wanted him to get a bath and insisted that nursing getting him up and in the shower. I said no. When he is fully awake, we can get him in the shower then. Because we can stop his IV, etc. Before right now with his lethargy he is at increased risk for falling. Mom says she could take it and she would get him in the shower and I again I said no. Plan: I have reordered another 24 hours of Soft upper extremity restraints until patient is more awake and alert. He has poor safety awareness, keeps on pulling out lines
--- NOTE | 2022-12-25 17:08 | Ultrasound Report ---
PROCEDURE: Retroperitoneal INDICATIONS: acute renal failure TECHNIQUE: Real-time scanning was performed of the retroperitoneal organs, with image documentation. COMPARISON: None. FINDINGS: Kidneys: Kidneys are normal in size. Right kidney measures 10.0 cm long; left kidney measures 10.2 cm long. Right renal cortical thickness is 1.8 cm; left renal cortical thickness is 2.1 cm. No paulo d masses, hydronephrosis, or nephrolithiasis. The left kidney was difficult to evaluate due to patie nt condition in the ICU with cooperation. Bladder: Pre-void bladder volume is 218 mL. Pre-images demonstrate no intraluminal masses or stones. On pre-void images, bilateral ureteral jets are noted with color Doppler interrogation. (Of note, ureteral jets may not be detectable in up to 25% of cases due to insufficient differences in specific gravity between ureteral and bladder urine). Miscellaneous: No free abdominal fluid. IMPRESSION: No acute ultrasound abnormality of the kidneys bilaterally. The left kidney was difficult to evaluate , however there is no hydronephrosis or gross abnormality. Reviewed by: Missael Redmond on 12/25/2022 4:06 PM JACY Approved by: Missael Redmond on 12/25/2022 4:06 PM JACY Station ID: [id number]
[2022-12-25] MEDS ORDERED: INSULIN LISPRO 300 UNIT/3 ML PEN SUBQ STA (17:16)
[2022-12-26] MEDS ORDERED: POTASSIUM PHOSPHATE 15 MMOL in SODIUM CHLORIDE 0.9% 250 ML IV ONE ×2 (02:17→08:00)
[2022-12-26] MEDS: SODIUM CHLORIDE FLUSH 0.9% 10 ML SYRINGE IVP SCH ×3 (03:08→17:36)
[2022-12-26] MEDS: DEXTROSE 5% 1,000 ML IV SCH ×2 (04:45→13:50)
[2022-12-26 06:00] LABS: CALCIUM, IONIZED 1.24 mmol/L (1.15-1.33); VBG PH 7.373 (7.31-7.41)
[2022-12-26 06:04] LABS: BASOPHILS % (AUTO) 0.2 %; EOSINOPHILS # (AUTO) 0.2 10^3/uL (0.0-0.7); EOSINOPHILS % (AUTO) 2.1 %; HCT - HEMATOCRIT 37.8 % (42.0-52.0); HGB - HEMOGLOBIN 12.1 g/dL (14.0-18.0); LYMPHOCYTES # (AUTO) 2.1 10^3/uL (1.5-3.5); LYMPHOCYTES % (AUTO) 18.7 %; MEAN CORPUSCULAR HEMOGLOBIN 25.2 pg (27.0-31.0); MEAN CORPUSCULAR VOLUME 78.8 fL (80.0-94.0); MEAN PLATELET VOLUME 13.4 fL (7.4-11.4); MONOCYTES # (AUTO) 0.8 10^3/uL (0.0-1.0); MONOCYTES % (AUTO) 7.3 %; NEUTROPHILS % (AUTO) 71.1 %; NRBC ABSOLUTE COUNT (AUTO) 0.05 x10^3/uL; NUCLEATED RED BLOOD CELLS AUTO 0.4 /100WBC; PLT - PLATELET COUNT 210 10^3/uL (130-450); RED CELL DISTRIBUTION WIDTH 14.4 % (12.0-15.0); WHITE BLOOD COUNT 11.2 x10^3/uL (4.8-10.8)
[2022-12-26] MEDS: INSULIN REGULAR HUMAN 300 UNIT/3 ML VIAL SUBQ SCH (06:04)
[2022-12-26 06:10] LABS: MAGNESIUM 2.2 mg/dL (1.7-2.8)
[2022-12-26 06:15] LABS: CALCIUM 8.9 mg/dL (8.5-10.3); CREATININE 2.2 mg/dL (0.6-1.2); POTASSIUM 3.8 mmol/L (3.5-5.0)
--- NOTE | 2022-12-26 07:27 | PROVIDER PROGRESS NOTE ---
Subjective - Prog Note Date Prog Note Date: 12/26/22 Prog Note Time: 07:26 - Subjective Subjective: He has become more awake. He is now taking sips of fluid. More appropriate and a normal conversation. More lucid. I was able to stop the D5 drip for the hyper natremia last night. Right before I left shift, his sodium was 151. I instructed nursing to stop the D5 if his midnight sodium was below 150. He was 145. This morning sodium is 149. Glucose with this is 227. Current Medications - Current Medications Current Medications: Active Medications Acetaminophen (Acetaminophen 325 Mg Tablet) 650 mg PO Q4HR PRN PRN Reason: Pain 1 to 4, or Fever Enoxaparin Sodium (Enoxaparin 40 Mg/0.4 Ml Syringe) 40 mg SUBQ DAILY [facility] Last Admin: 12/25/22 08:24 Dose: 40 mg Hydralazine HCl (Hydralazine Inj 20 Mg/Ml Vial) 10 mg IVP QID [facility] Last Admin: 12/25/22 21:40 Dose: 10 mg Dextrose (D5w) 1,000 mls @ 200 mls/hr IV .Q5H [facility] Last Admin: 12/26/22 04:45 Dose: Not Given Potassium Phosphate 15 mmol/ (Dextrose) 255 mls @ 63 mls/hr IV ONCE ONE; Joel col Stop: 12/26/22 12:02 Insulin Glargine-yfgn (Insulin Glargine-Yfgn 300 Unit/3 Ml Pen) 30 unit SUBQ QPM [facility] Last Admin: 12/25/22 20:30 Dose: 30 unit Insulin Glargine-yfgn (Insulin Glargine-Yfgn 300 Unit/3 Ml Pen) 15 unit SUBQ QDBREAKFAST [facility] Insulin Human Lispro (Insulin Lispro 300 Unit/3 Ml Pen) 5 unit SUBQ TIDWM [facility]; Protocol Insulin Human Regular (Insulin Regular Human 300 Unit/3 Ml Vial) 3 - 11 unit SUBQ Q6HR [facility]; Protocol Last Admin: 12/26/22 06:04 Dose: 5 unit Lorazepam (Lorazepam 2 Mg/Ml Vial) 0.5 mg IVP Q2H PRN PRN Reason: Anxiety Last Admin: 12/25/22 03:07 Dose: 0.5 mg Metoprolol Tartrate (Metoprolol 5 Mg/5 Ml Vial) 5 mg IVP Q6H PRN PRN Reason: Hypertensive Emergency Last Admin: 12/25/22 03:21 Dose: 5 mg Ondansetron HCl (Ondansetron Odt 4 Mg Tablet) 4 mg TL Q6HR PRN PRN Reason: Nausea / Vomiting Ondansetron HCl (Ondansetron 4 Mg/2 Ml Vial) 4 mg IVP Q6HR PRN PRN Reason: Nausea / Vomiting Oxycodone HCl (Oxycodone 5 Mg Tablet) 5 mg PO Q4HR PRN PRN Reason: Pain 5 to 7 Last Admin: 12/25/22 06:22 Dose: 5 mg Polyethylene Glycol (Polyethylene Glycol 3350 17 Gm Packet) 17 gm PO DAILY [facility] Sodium Chloride (Sodium Chloride Flush 0.9% 10 Ml Syringe) 10 ml IVP 0100,0900,1700 [facility] Last Admin: 12/26/22 03:08 Dose: 10 ml Sodium Chloride (Sodium Chloride Flush 0.9% 10 Ml Syringe) 10 ml IVP PRN PRN PRN Reason: NEEDED PER PROVIDER ORDERS Last Admin: 12/25/22 03:22 Dose: 10 ml Objective - Vital Signs/Intake & Output Reviewed Vital Signs: Yes Vital Signs: Vital Signs x48h Temp Pulse Resp BP Pulse Ox 12/26/22 06:00 36.8 C 107 H 24 130/87 H 99 Intake & Output: Intake & Output 12/23/22 12/24/22 12/25/22 12/26/22 23:59 23:59 23:59 23:59 Intake Total 5003.849 5832.916 616 Output Total 700 0 500 Balance 4303.849 5832.916 116 - Objective General Appearance: positive: No acute distress, Other (For once he is not sleeping, eyes are open, he actually asked me some questions.) Eyes Bilateral: positive: PERRL, EOMI ENT: positive: No signs of dehydration Neck: positive: No JVD. negative: Stiff neck Respiratory: positive: No respiratory distress. negative: Wheezes, Rales, Rhonchi Cardiovascular: positive: Regular rate & rhythm Abdomen: positive: Non-tender, No organomegaly, Nml bowel sounds, No distention Skin: positive: Warm, Dry Extremities: positive: Full ROM, No pedal edema Neurologic/Psychiatric: positive: CN's nml (2-12), Disoriented to time. negative: Motor nml (Really weak. He was in bed for a week before he came here, then has been in an ICU bed for the last few days. Standing is hard for him and he cannot stand for more than a few seconds. Much more lucid.) - Lab Results Fish Bones: 12/26/22 04:33 12/26/22 04:33 Other Labs: Lab Results x24hrs 12/26/22 12/26/22 12/26/22 Range/Units 06:02 04:38 04:33 WBC (4.8-10.8) x10^3/uL RBC (4.70-6.10) 10^6/uL Hgb (14.0-18.0) g/dL Hct (42.0-52.0) % MCV (80.0-94.0) fL MCH (27.0-31.0) pg MCHC (32.0-36.0) g/dL RDW (12.0-15.0) % Plt Count (130-450) 10^3/uL MPV (7.4-11.4) fL Neut # (Auto) (1.5-6.6) 10^3/uL Lymph # (Auto) (1.5-3.5) 10^3/uL Divide # (Auto) (0.0-1.0) 10^3/uL Eos # (Auto) (0.0-0.7) 10^3/uL Baso # (Auto) (0.0-0.1) 10^3/uL Absolute Nucleated RBC x10^3/uL Nucleated RBC % /100WBC VBG pH 7.373 (7.31-7.41) Ionized Calcium 1.24 (1.15-1.33) mmol/L Sodium (135-145) mmol/L Potassium (3.5-5.0) mmol/L Chloride (101-111) mmol/L Carbon Dioxide (21-32) mmol/L Anion Gap (6-13) BUN (6-20) mg/dL Creatinine (0.6-1.2) mg/dL Estimated GFR (MDRD) (>89) Glucose (70-100) mg/dL POC Whole Bld Glucose 210 H 215 H (70 - 100) mg/dL Calcium (8.5-10.3) mg/dL Phosphorus (2.5-4.6) mg/dL Magnesium (1.7-2.8) mg/dL 12/26/22 12/26/22 12/26/22 Range/Units 04:33 04:33 04:33 WBC 11.2 H (4.8-10.8) x10^3/uL RBC 4.80 (4.70-6.10) 10^6/uL Hgb 12.1 L (14.0-18.0) g/dL Hct 37.8 L (42.0-52.0) % MCV 78.8 L (80.0-94.0) fL MCH 25.2 L (27.0-31.0) pg MCHC 32.0 (32.0-36.0) g/dL RDW 14.4 (12.0-15.0) % Plt Count 210 (130-450) 10^3/uL MPV 13.4 H (7.4-11.4) fL Neut # (Auto) 8.0 H (1.5-6.6) 10^3/uL Lymph # (Auto) 2.1 (1.5-3.5) 10^3/uL Divide # (Auto) 0.8 (0.0-1.0) 10^3/uL Eos # (Auto) 0.2 (0.0-0.7) 10^3/uL Baso # (Auto) 0.0 (0.0-0.1) 10^3/uL Absolute Nucleated RBC 0.05 x10^3/uL Nucleated RBC % 0.4 /100WBC VBG pH (7.31-7.41) Ionized Calcium (1.15-1.33) mmol/L Sodium 149 H (135-145) mmol/L Potassium 3.8 (3.5-5.0) mmol/L Chloride 122 H* (101-111) mmol/L Carbon Dioxide 21 (21-32) mmol/L Anion Gap 6.0 (6-13) BUN 35 H (6-20) mg/dL Creatinine 2.2 H (0.6-1.2) mg/dL Estimated GFR (MDRD) 42 L (>89) Glucose 227 H (70-100) mg/dL POC Whole Bld Glucose (70 - 100) mg/dL Calcium 8.9 (8.5-10.3) mg/dL Phosphorus 2.0 L (2.5-4.6) mg/dL Magnesium 2.2 (1.7-2.8) mg/dL 12/26/22 12/26/22 12/26/22 Range/Units 00:43 00:43 00:43 WBC (4.8-10.8) x10^3/uL RBC (4.70-6.10) 10^6/uL Hgb (14.0-18.0) g/dL Hct (42.0-52.0) % MCV (80.0-94.0) fL MCH (27.0-31.0) pg MCHC (32.0-36.0) g/dL RDW (12.0-15.0) % Plt Count (130-450) 10^3/uL MPV (7.4-11.4) fL Neut # (Auto) (1.5-6.6) 10^3/uL Lymph # (Auto) (1.5-3.5) 10^3/uL Divide # (Auto) (0.0-1.0) 10^3/uL Eos # (Auto) (0.0-0.7) 10^3/uL Baso # (Auto) (0.0-0.1) 10^3/uL Absolute Nucleated RBC x10^3/uL Nucleated RBC % /100WBC VBG pH (7.31-7.41) Ionized Calcium (1.15-1.33) mmol/L Sodium 145 (135-145) mmol/L Potassium 3.7 (3.5-5.0) mmol/L Chloride (101-111) mmol/L Carbon Dioxide (21-32) mmol/L Anion Gap (6-13) BUN (6-20) mg/dL Creatinine (0.6-1.2) mg/dL Estimated GFR (MDRD) (>89) Glucose (70-100) mg/dL POC Whole Bld Glucose (70 - 100) mg/dL Calcium (8.5-10.3) mg/dL Phosphorus 2.3 L (2.5-4.6) mg/dL Magnesium (1.7-2.8) mg/dL 12/25/22 12/25/22 12/25/22 Range/Units 23:29 20:27 19:38 WBC (4.8-10.8) x10^3/uL RBC (4.70-6.10) 10^6/uL Hgb (14.0-18.0) g/dL Hct (42.0-52.0) % MCV (80.0-94.0) fL MCH (27.0-31.0) pg MCHC (32.0-36.0) g/dL RDW (12.0-15.0) % Plt Count (130-450) 10^3/uL MPV (7.4-11.4) fL Neut # (Auto) (1.5-6.6) 10^3/uL Lymph # (Auto) (1.5-3.5) 10^3/uL Divide # (Auto) (0.0-1.0) 10^3/uL Eos # (Auto) (0.0-0.7) 10^3/uL Baso # (Auto) (0.0-0.1) 10^3/uL Absolute Nucleated RBC x10^3/uL Nucleated RBC % /100WBC VBG pH (7.31-7.41) Ionized Calcium (1.15-1.33) mmol/L Sodium 151 H (135-145) mmol/L Potassium (3.5-5.0) mmol/L Chloride (101-111) mmol/L Carbon Dioxide (21-32) mmol/L Anion Gap (6-13) BUN (6-20) mg/dL Creatinine (0.6-1.2) mg/dL Estimated GFR (MDRD) (>89) Glucose (70-100) mg/dL POC Whole Bld Glucose 273 H 229 H (70 - 100) mg/dL Calcium (8.5-10.3) mg/dL Phosphorus (2.5-4.6) mg/dL Magnesium (1.7-2.8) mg/dL 12/25/22 12/25/22 12/25/22 Range/Units 17:13 13:02 11:53 WBC (4.8-10.8) x10^3/uL RBC (4.70-6.10) 10^6/uL Hgb (14.0-18.0) g/dL Hct (42.0-52.0) % MCV (80.0-94.0) fL MCH (27.0-31.0) pg MCHC (32.0-36.0) g/dL RDW (12.0-15.0) % Plt Count (130-450) 10^3/uL MPV (7.4-11.4) fL Neut # (Auto) (1.5-6.6) 10^3/uL Lymph # (Auto) (1.5-3.5) 10^3/uL Divide # (Auto) (0.0-1.0) 10^3/uL Eos # (Auto) (0.0-0.7) 10^3/uL Baso # (Auto) (0.0-0.1) 10^3/uL Absolute Nucleated RBC x10^3/uL Nucleated RBC % /100WBC VBG pH (7.31-7.41) Ionized Calcium (1.15-1.33) mmol/L Sodium 150 H (135-145) mmol/L Potassium 4.4 (3.5-5.0) mmol/L Chloride 124 H* (101-111) mmol/L Carbon Dioxide 21 (21-32) mmol/L Anion Gap 5.0 L (6-13) BUN 49 H (6-20) mg/dL Creatinine 2.6 H (0.6-1.2) mg/dL Estimated GFR (MDRD) 35 L (>89) Glucose 429 H (70-100) mg/dL POC Whole Bld Glucose 396 H 363 H (70 - 100) mg/dL Calcium 8.8 (8.5-10.3) mg/dL Phosphorus (2.5-4.6) mg/dL Magnesium (1.7-2.8) mg/dL 12/25/22 Range/Units 08:13 WBC (4.8-10.8) x10^3/uL RBC (4.70-6.10) 10^6/uL Hgb (14.0-18.0) g/dL Hct (42.0-52.0) % MCV (80.0-94.0) fL MCH (27.0-31.0) pg MCHC (32.0-36.0) g/dL RDW (12.0-15.0) % Plt Count (130-450) 10^3/uL MPV (7.4-11.4) fL Neut # (Auto) (1.5-6.6) 10^3/uL Lymph # (Auto) (1.5-3.5) 10^3/uL Divide # (Auto) (0.0-1.0) 10^3/uL Eos # (Auto) (0.0-0.7) 10^3/uL Baso # (Auto) (0.0-0.1) 10^3/uL Absolute Nucleated RBC x10^3/uL Nucleated RBC % /100WBC VBG pH (7.31-7.41) Ionized Calcium (1.15-1.33) mmol/L Sodium (135-145) mmol/L Potassium (3.5-5.0) mmol/L Chloride (101-111) mmol/L Carbon Dioxide (21-32) mmol/L Anion Gap (6-13) BUN (6-20) mg/dL Creatinine (0.6-1.2) mg/dL Estimated GFR (MDRD) (>89) Glucose (70-100) mg/dL POC Whole Bld Glucose 247 H (70 - 100) mg/dL Calcium (8.5-10.3) mg/dL Phosphorus (2.5-4.6) mg/dL Magnesium (1.7-2.8) mg/dL ABX Reporting Has patient been on IV antibiotics over the past 48 hours?: No Assessment/Plan - Problem List (1) Diabetic ketoacidosis Impression: Ketosis has resolved. He has been off the insulin drip for a day and a half. I started Lantus on the evening of the at 10 units. Yesterday morning he received Lantus 25 units. Glucose continue to be elevated enough that I increase Lantus to 30 units in the morning today. And last night he received 15 units. He was not eating. And he was on a sliding scale on top of the Lantus. His A1c came back this morning and it is 17.4% at 453 average glucose. Pharmacy was finally able to get the medicine list from the [facility] present. He was on Lantus and metformin. I am confused about the metformin because I did not think it was used in type I diabetics. The patient tells me he was taking 60 units of Lantus at night and 70 units in the morning. Today he is starting to eat. He is almost finishing all of his breakfast. Fasting glucose was 215. So I was continuing the Lantus 30 units in the morning, 15 units at night, and I added 5 units of short acting insulin with each meal. Plus sliding scale. As I was finishing this note, nursing came to me to tell me that he is finished his lunch, he is about to eat dinner and his glucose is 333. Taking into acco unt what he told me about his Lantus I am increasing his Lantus to 50 at night, and 20 in the morning. I am ordering the continued 5 units before each meal and he is going to get 10 units of sliding which equals 15 units of short acting before dinner. Plan: Continue to adjust Lantus. Possibly get to the doses he was taking in jail. I do not think a medical immediately to those doses until I can verify that his sugar is going to bottom out Qualifiers: Diabetes mellitus type: type 1 Diabetes mellitus complication detail: without coma Qualified Code(s): E10.10 - Type 1 diabetes mellitus with ketoacidosis without coma (2) Acute on chronic renal failure Impression: I do not know his baseline creatinine since I do not have access to any previous labs. When he was admitted his creatinine was 4 with his severe acidosis. Creatinine has slowly been coming down on a daily basis and is now 2.2 today. He does have a lab work from 2020 where his creatinine was 1.9. That would be my goal. I had him on a D5 drip yesterday for hypernatremia. That has resolved so the D5 drip was discontinued last night. I do not have him on continuous fluids at this time. Plan: Push p.o. fluids with water. Continue to monitor his creatinine and avoid nephrotoxic agent. If his creatinine continues to come down without needing IV fluids that would be great. If his creatinine bumped up tomorrow or stays the same, I would resume 0.45 normal saline. Qualifiers: Acute renal failure type: with acute tubular necrosis Chronic kidney disease stage: stage 3 (moderate) Chronic kidney disease stage 3 subtype: unspecified whether 3a or 3b Qualified Code(s): N17.0 - Acute kidney failure with tubular necrosis; N18.30 - Chronic kidney disease, stage 3 unspecified (3) Leukocytosis Impression: My fear was that he had an infection that was a occult. That I was not finding it. But I did a complete work-up with chest x-ray, UA and I found nothing. His leukocytosis is slowly resolving with control of his glucose and control of his kidney failure. He most likely had demargination. Today is 11.2. Plan: Follow CBC daily, no addition of antibiotics Qualifiers: Leukocytosis type: leukemoid reaction Qualified Code(s): D72.823 - Leukemoid reaction (4) Hypertension Impression: In looking at the [facility] records he was on amlodipine and lisinopril. I had avoided doing an LACIE inhibitor or an ARB on the basis of his BUN and creatinine. I gave him Lopressor 5 mg IV push every 6 hours as needed. Also hydralazine 10 mg IV push 4 times daily scheduled. Today's blood pressure was initially 128/82 with the control of the hydralazine. By 1:00 this afternoon he is 158/79, So I will resume Norvasc at 10 mg daily. I will only start with 5 mg of lisinopril. I need to watch his BUN/creatinine and potassium with this. Norvasc will be 1 dose tonight, and then daily thereafter tomorrow. Lisinopril will start tomorrow morning. Qualifiers: Hypertension type: renovascular hypertension Qualified Code(s): I15.0 - Renovascular hypertension (5) Encephalopathy acute Impression: TelemetrySlowly resolving. He still slow. He is a young 32-year-old male whose family describes him is completely intact from a activities of daily living perspective and a thought process perspective.Urine toxicology screen was negative for everything except cannabinoids. He was initially very sleepy and encephalopathic and is slowly been getting better. Has not received any Ativan since 3 AM December 25. I am asking nursing to put him in the shower today. Avoid any sedation. Tomorrow may be address why he did not take his insulin for the last 2 weeks. (6) Physical deconditioning Impression: I have asked PT and OT to see the patient. He should be strong enough to return to home. But I would like him evaluated to see if he needs a cane, walker, or do we need to evaluate him for placement in a group home facility for temporary rehab.
[2022-12-26] MEDS ORDERED: INSULIN GLARGINE-YFGN 300 UNIT/3 ML PEN SUBQ SCH ×2 (08:00→21:00)
[2022-12-26] MEDS ORDERED: POTASSIUM PHOSPHATE 15 MMOL in DEXTROSE 5% 250 ML IV ONE (08:00)
[2022-12-26] MEDS: INSULIN LISPRO 300 UNIT/3 ML PEN SUBQ SCH ×8 (08:37→20:17)
[2022-12-26] MEDS: ENOXAPARIN 40 MG/0.4 ML SYRINGE SUBQ SCH (08:40)
[2022-12-26] MEDS: polyethylene glycoL 3350 17 GM PACKET PO SCH (08:56)
[2022-12-26] MEDS: hydrALAZINE INJ 20 MG/ML VIAL IVP SCH (08:56)
[2022-12-26 12:32] LABS: ESTIMATED AVERAGE GLUCOSE 453 mg/dL (70-100); HEMOGLOBIN A1c% 17.4 % (4.27-6.07)
--- NOTE | 2022-12-26 16:38 | PHARMACY PROGRESS NOTE ---
- Best Possible Medication History Admit Date and Time: 12/24/22 0803 Processed by: Pharmacy Medication History completed: Yes Patient Interview: Pt unable to participate Secondary Source(s): Pharmacy records ([facility] records) As the person ultimately responsible for medication therapy, providers are able to order a medication from an existing home medication list in [facility] via the "Reconcile Routine" prior to Confirmation of that medication by operator command support systems. Such practice is discouraged except when the physician, in their clinical judgment, deems that a medical need exists for a medication without regard to previous use.
[2022-12-26] MEDS ORDERED: amLODIPine 5 MG TABLET PO STA (17:17)
[2022-12-27] MEDS: SODIUM CHLORIDE FLUSH 0.9% 10 ML SYRINGE IVP PRN (04:25)
[2022-12-27] MEDS: SODIUM CHLORIDE FLUSH 0.9% 10 ML SYRINGE IVP SCH ×3 (04:25→20:47)
[2022-12-27 05:53] LABS: BASOPHILS % (AUTO) 0.2 %; EOSINOPHILS # (AUTO) 0.2 10^3/uL (0.0-0.7); EOSINOPHILS % (AUTO) 2.1 %; HCT - HEMATOCRIT 33.3 % (42.0-52.0); HGB - HEMOGLOBIN 10.6 g/dL (14.0-18.0); LYMPHOCYTES # (AUTO) 3.2 10^3/uL (1.5-3.5); LYMPHOCYTES % (AUTO) 27.4 %; MEAN CORPUSCULAR HEMOGLOBIN 25.4 pg (27.0-31.0); MEAN CORPUSCULAR HGB CONC 31.8 g/dL (32.0-36.0); MEAN CORPUSCULAR VOLUME 79.7 fL (80.0-94.0); MEAN PLATELET VOLUME 12.8 fL (7.4-11.4); MONOCYTES # (AUTO) 0.8 10^3/uL (0.0-1.0); MONOCYTES % (AUTO) 6.6 %; NEUTROPHILS # (AUTO) 7.3 10^3/uL (1.5-6.6); NEUTROPHILS % (AUTO) 63.2 %; NRBC ABSOLUTE COUNT (AUTO) 0.02 x10^3/uL; NUCLEATED RED BLOOD CELLS AUTO 0.2 /100WBC; PLT - PLATELET COUNT 156 10^3/uL (130-450); RED BLOOD COUNT 4.18 10^6/uL (4.70-6.10); RED CELL DISTRIBUTION WIDTH 14.4 % (12.0-15.0); WHITE BLOOD COUNT 11.6 x10^3/uL (4.8-10.8)
[2022-12-27 06:05] LABS: CALCIUM, IONIZED 1.19 mmol/L (1.15-1.33); VBG PH 7.432 (7.31-7.41)
[2022-12-27 06:07] LABS: CALCIUM 8.4 mg/dL (8.5-10.3); CREATININE 1.8 mg/dL (0.6-1.2); PHOSPHORUS 2.9 mg/dL (2.5-4.6); POTASSIUM 3.7 mmol/L (3.5-5.0)
[2022-12-27 06:15] LABS: CHOL/HDL RATIO 5.8 (<5.0); CHOLESTEROL 203 mg/dL; HDL CHOLESTEROL 35 mg/dL; LDL CHOLESTEROL,CALCULATED 117 mg/dL; LDL/HDL RATIO 3.3 (<3.6); TRIGLYCERIDES 256 mg/dL; VLDL CHOLESTEROL 51 mg/dL
--- NOTE | 2022-12-27 07:50 | PROVIDER PROGRESS NOTE ---
Assessment/Plan - Problem List (1) Type 1 diabetes mellitus Assessment/Plan: Ketosis has resolved. He has been off the insulin drip for 2 days. The patient said he was taking 60 units of Lantus at night and 70 units in the morning. We started p.m. Lantus on 12/24 at 10 units. For a.m. dose, he received Lantus 25 units, then Lantus incr to 30 units in the morning. But he was not eating. And he was on a sliding scale on top of the Lantus. His A1c came back at 17.4% equating to 453 as his average glucose. On 12/27 he started to eat. He was running glu 200's-300's yesterday 12/26. Toiday his a.m. glu was 75 (which improved w/ OJ), after receiving 50 U of Lantus last night. Pharmacy was finally able to get the medicine list from the [facility]. He was on Lantus 10 U BID, not 70 U in a.m. and 60 U in p.m. He was also Metformin while there. (I did not think Metformin was used in type I diabetics). Plan: Continue to adjust Lantus. Today I will increase the Lantus 20U in the a.m. to 25 units. I will decrease the p.m. Lantus from 50 U to 15 U. Possibly we can get him on the doses he was taking in halfway. Patient transferred out of the ICU today to [facility] status (2) Acute on chronic renal failure Impression: When he was admitted his creatinine was 4 with his severe acidosis. Creatinine has slowly been coming down on a daily basis and is now 1.8 today. He does have a lab work from 2020 where his creatinine was 1.9. He was on D5 drip for hypernatremia. That has resolved so the D5 drip was discontinued. I do not have him on continuous fluids at this time. Plan: Plan to push p.o. fluids, not restart iv fluids. Continue to monitor his creatinine and avoid nephrotoxic agent. If his creatinine continues to come down without needing IV fluids that would be great. If his creatinine bumped up tomorrow or stays the same, I would resume 0.45 normal saline. Qualifiers: Acute renal failure type: with acute tubular necrosis Chronic kidney disease stage: stage 3 (moderate) Chronic kidney disease stage 3 subtype: unspecified whether 3a or 3b Qualified Code(s): N17.0 - Acute kidney failure with tubular necrosis; N18.30 - Chronic kidney disease, stage 3 unspecified (3) Leukocytosis Impression: We did a complete work-up with chest x-ray, UA and found nothing. His leukocytosis is slowly resolving with control of his glucose and control of his kidney failure. He most likely had demargination. All labs were reviewed. Today is 11.6. Plan: Follow CBC daily, no addition of antibiotics Qualifiers: Leukocytosis type: leukemoid reaction Qualified Code(s): D72.823 - Leukemoid reaction (4) Hypertension Impression: In looking at the [facility] records, he was on amlodipine and lisinopril. I had avoided doing an LACIE inhibitor or an ARB on the basis of his BUN and creatinine. He received Lopressor 5 mg IV push every 6 hours as needed. Also hydralazine 10 mg IV push 4 times daily scheduled. As he started to wake his Norvasc 10 mg and Lisinopril 5 mg have been restarted Plan: Continue his Norvasc and Lisinopril Qualifiers: L Hypertension type: renovascular hypertension Qualified Code(s): I15.0 - Renovascular hypertension (5) Encephalopathy acute Impression: Slowly resolving. He is still moving slowly and lethargic. He is a young 32-year-old male whose family describes him is completely intact from a activities of daily living perspective and a thought process perspective. Urine toxicology screen was negative for everything except cannabinoids. He was initially very sleepy and encephalopathic and is slowly been getting better. Has not received any Ativan since 3 AM December 25. Plan: Avoid any sedation. As he improves, we will address why he did not take his insulin for the last 2 weeks. (6) Physical deconditioning Impression: This patient has been hospitalized and in bed for 3 days. Prior to that he was on his couch not getting up as his DKA was worsening for approximately 1 week. He has become very deconditioned, is still moving slowly Plan: I have asked PT and OT to see the patient. He should be strong enough to return to home. But I would like him evaluated to see if he needs a cane, walker, or do we need to evaluate him for placement in a penitentiary facility for temporary rehab. (7) Diabetic ketoacidosis Impression: Ketosis has resolved - Current Meds Current Meds: Current Medications Generic Name Dose Route Start Last Admin Trade Name Freq PRN Reason Stop Dose Admin Enoxaparin Sodium 40 mg 12/24/22 09:00 12/26/22 08:40 Enoxaparin 40 Mg/0.4 Ml Syringe SUBQ Not Given DAILY PENELOPE Insulin Glargine-yfgn 50 unit 12/26/22 21:00 12/26/22 20:17 Insulin Glargine-Yfgn 300 Unit/3 Ml Pen SUBQ 50 unit QPM PENELOPE Administration Insulin Human Lispro 5 unit 12/26/22 08:00 12/26/22 17:35 Insulin Lispro 300 Unit/3 Ml Pen SUBQ 5 unit TIDWM PENELOPE Administration Protocol Insulin Human Lispro 3 - 11 unit 12/26/22 17:00 12/26/22 20:17 Insulin Lispro 300 Unit/3 Ml Pen SUBQ 9 unit 0800,1200,1700,2100 PENELOPE Administration Protocol Lorazepam 0.5 mg 12/24/22 15:10 12/25/22 03:07 Lorazepam 2 Mg/Ml Vial IVP 0.5 mg Q2H PRN Administration Anxiety Metoprolol Tartrate 5 mg 12/24/22 15:12 12/25/22 03:21 Metoprolol 5 Mg/5 Ml Vial IVP 5 mg Q6H PRN Administration Hypertensive Emergency Oxycodone HCl 5 mg 12/24/22 08:02 12/25/22 06:22 Oxycodone 5 Mg Tablet PO 5 mg Q4HR PRN Administration Pain 5 to 7 Polyethylene Glycol 17 gm 12/26/22 09:00 12/26/22 08:56 Polyethylene Glycol 3350 17 Gm Packet PO Not Given DAILY PENELOPE Sodium Chloride 10 ml 12/24/22 09:00 12/27/22 04:25 Sodium Chloride Flush 0.9% 10 Ml Syringe IVP 10 ml 0100,0900,1700 PENELOPE Administration Sodium Chloride 10 ml 12/24/22 08:02 12/27/22 04:25 Sodium Chloride Flush 0.9% 10 Ml Syringe IVP 20 ml PRN PRN Administration NEEDED PER PROVIDER ORDERS - Lab Result Fish Bone Diagrams: 12/27/22 04:25 12/27/22 04:25 - Additional Planning My Orders: My Active Orders 12/27/22 07:38 Transfer [Admit \ Transfer \ Status] [RC] .ONCE 12/27/22 08:00 Insulin Glargine-Yfgn [Semglee] 25 unit SUBQ [id number] Subjective - Subjective Patient Reports: Feeling Better, Fatigue (Napping after lunch) Nursing Reports: Other (Has good appetite) Objective Vital Signs: Vital Signs - 24 hr 12/26/22 12/26/22 12/26/22 08:56 09:29 13:25 Temperature 37.2 C Heart Rate [ 104 H Monitoring electrodes] Heart Rate [ 105 H Sitting] Respiratory 21 Rate Blood Pressure 128/82 H Blood Pressure 128/82 H [Right Brachial artery] Blood Pressure 158/79 H [Sitting] O2 Saturation 99 12/26/22 12/26/22 12/27/22 16:05 17:40 00:35 Temperature 37.2 C 37.5 C Heart Rate [ 100 98 Monitoring electrodes] Heart Rate [ Sitting] Respiratory 20 18 Rate Blood Pressure Blood Pressure 156/89 H 120/76 140/81 H [Right Brachial artery] Blood Pressure [Sitting] O2 Saturation 99 96 Oxygen O2 Source Room air I&O (Last 24 Hrs): Intake and Output Totals x24h 12/25/22 12/26/22 12/27/22 23:59 23:59 23:59 Intake Total 5832.916 2781 550 Output Total 0 1500 325 Balance 5832.916 1281 225 General: Oriented x3, Other (lethargic, but awakens and communicates) HEENT: Atraumatic, EOMI, Mucous membr. moist/pink Neck: Supple Neuro: Non Focal, Other (lethargic, but awakens and communicates) Cardiovascular: Regular rate, No murmurs Respiratory: No respiratory distress, Breath sounds nml Abdomen: Normal bowel sounds, Soft, No tenderness Extremities: No clubbing, No edema, No tenderness/swelling - Results Results: Laboratory Results WBC 11.6 x10^3/uL (4.8-10.8) H 12/27/22 04:25 RBC 4.18 10^6/uL (4.70-6.10) L 12/27/22 04:25 Hgb 10.6 g/dL (14.0-18.0) L 12/27/22 04:25 Hct 33.3 % (42.0-52.0) L 12/27/22 04:25 MCV 79.7 fL (80.0-94.0) L 12/27/22 04:25 MCH 25.4 pg (27.0-31.0) L 12/27/22 04:25 MCHC 31.8 g/dL (32.0-36.0) L 12/27/22 04:25 RDW 14.4 % (12.0-15.0) 12/27/22 04:25 Plt Count 156 10^3/uL (130-450) 12/27/22 04:25 MPV 12.8 fL (7.4-11.4) H 12/27/22 04:25 Neut # (Auto) 7.3 10^3/uL (1.5-6.6) H 12/27/22 04:25 Lymph # (Auto) 3.2 10^3/uL (1.5-3.5) 12/27/22 04:25 Beaver # (Auto) 0.8 10^3/uL (0.0-1.0) 12/27/22 04:25 Eos # (Auto) 0.2 10^3/uL (0.0-0.7) 12/27/22 04:25 Baso # (Auto) 0.0 10^3/uL (0.0-0.1) 12/27/22 04:25 Absolute Nucleated RBC 0.02 x10^3/uL 12/27/22 04:25 Total Counted 100 12/24/22 01:45 Band Neuts % (Manual) 2 % (0-10) 12/24/22 01:45 Abnorm Lymph % (Manual) 0 % 12/24/22 01:45 Metamyelocytes % 1 % (-0) H 12/24/22 01:45 Myelocytes % 1 % (-0) H 12/24/22 01:45 Nucleated RBC % 0.2 /100WBC 12/27/22 04:25 Neutrophils # (Manual) 20.6 10^3/uL (1.5-6.6) H 12/24/22 01:45 Lymphocytes # (Manual) 1.9 10^3/uL (1.5-3.5) 12/24/22 01:45 Monocytes # (Manual) 0.0 10^3/uL (0.0-1.0) 12/24/22 01:45 Eosinophils # (Manual) 0.2 10^3/uL (0-0.7) 12/24/22 01:45 Basophils # (Manual) 0.0 10^3/uL (0-0.1) 12/24/22 01:45 Differential Comment MANUAL DIFFERENTIAL 12/24/22 01:45 Platelet Estimate NORMAL (130-450,000) (NORMAL) 12/24/22 01:45 RBC Morph Micro Appear NORMAL APPEARANCE (NORMAL) 12/24/22 01:45 VBG pH 7.432 (7.31-7.41) H 12/27/22 04:25 VBG pCO2 39.4 mmHg (41-51) L 12/24/22 04:04 VBG pO2 37.5 mmHg (25-47) 12/24/22 04:04 VBG HCO3 15.2 mmol/L (23-28) L 12/24/22 04:04 VBG Total CO2 16.4 mmol/L (24-29) L 12/24/22 04:04 VBG O2 Saturation 69.0 % (60-80) 12/24/22 04:04 VBG Base Excess -12.2 mmol/L (-2 - +2) L 12/24/22 04:04 Ionized Calcium 1.19 mmol/L (1.15-1.33) 12/27/22 04:25 Sodium 142 mmol/L (135-145) 12/27/22 04:25 Potassium 3.7 mmol/L (3.5-5.0) 12/27/22 04:25 Chloride 115 mmol/L (101-111) H 12/27/22 04:25 Carbon Dioxide 23 mmol/L (21-32) 12/27/22 04:25 Anion Gap 4.0 (6-13) L 12/27/22 04:25 BUN 24 mg/dL (6-20) H 12/27/22 04:25 Creatinine 1.8 mg/dL (0.6-1.2) H 12/27/22 04:25 Estimated GFR (MDRD) 53 (>89) L 12/27/22 04:25 Glucose 122 mg/dL (70-100) H 12/27/22 04:25 POC Whole Bld Glucose 285 mg/dL (70 - 100) H 12/26/22 20:14 Estimat Average Glucose 453 mg/dL (70-100) H 12/26/22 04:33 Hemoglobin A1c % 17.4 % (4.27-6.07) H 12/26/22 04:33 Lactic Acid 2.3 mmol/L (0.5-2.2) H 12/24/22 12:03 Calcium 8.4 mg/dL (8.5-10.3) L 12/27/22 04:25 Phosphorus 2.9 mg/dL (2.5-4.6) 12/27/22 04:25 Magnesium 2.0 mg/dL (1.7-2.8) 12/27/22 04:25 Total Bilirubin 0.6 mg/dL (0.2-1.0) 12/24/22 16:06 AST 13 IU/L (10-42) 12/24/22 16:06 ALT 16 IU/L (10-60) 12/24/22 16:06 Alkaline Phosphatase 104 IU/L (42-121) 12/24/22 16:06 Troponin I High Sens 54.4 ng/L (2.3-19.7) H* 12/24/22 12:03 Total Protein 7.2 g/dL (6.7-8.2) 12/24/22 16:06 Albumin 2.9 g/dL (3.2-5.5) L 12/24/22 16:06 Globulin 4.3 g/dL (2.1-4.2) H 12/24/22 16:06 Albumin/Globulin Ratio 0.7 (1.0-2.2) L 12/24/22 16:06 Triglycerides 256 mg/dL (-149) H 12/27/22 04:25 Cholesterol 203 mg/dL (-199) H 12/27/22 04:25 LDL Cholesterol, Calc 117 mg/dL (-129) 12/27/22 04:25 VLDL Cholesterol 51 mg/dL 12/27/22 04:25 HDL Cholesterol 35 mg/dL (60-) L 12/27/22 04:25 LDL/HDL Ratio 3.3 (<3.6) 12/27/22 04:25 Cholesterol/HDL Ratio 5.8 (<5.0) 12/27/22 04:25 Lipase 39 U/L (22-51) 12/24/22 01:45 Urine Color YELLOW 12/24/22 14:50 Urine Clarity HAZY (CLEAR) 12/24/22 14:50 Urine pH 5.0 PH (5.0-7.5) 12/24/22 14:50 Ur Specific [place] 1.015 (1.002-1.030) 12/24/22 14:50 Urine Protein 100 mg/dL (NEGATIVE) H 12/24/22 14:50 Urine Glucose (UA) >=1000 mg/dL (NEGATIVE) H 12/24/22 14:50 Urine Ketones TRACE mg/dL (NEGATIVE) 12/24/22 14:50 Urine Occult Blood SMALL (NEGATIVE) H 12/24/22 14:50 Urine Nitrite NEGATIVE (NEGATIVE) 12/24/22 14:50 Urine Bilirubin NEGATIVE (NEGATIVE) 12/24/22 14:50 Urine Urobilinogen 0.2 (NORMAL) E.U./dL (NORMAL) 12/24/22 14:50 Ur Leukocyte Esterase NEGATIVE (NEGATIVE) 12/24/22 14:50 Urine RBC 0-5 /HPF (0-5) 12/24/22 14:50 Urine WBC 0-3 /HPF (0-3) 12/24/22 14:50 Ur Squamous Epith Cells NONE SEEN (<= Few) 12/24/22 14:50 Amorphous Sediment Few /LPF 12/24/22 14:50 Urine Bacteria Few /HPF (None Seen) 12/24/22 14:50 Urine Casts 11-25 Fine Granular /LPF 12/24/22 14:50 Nasal Screen MRSA (PCR) NEGATIVE (NEGATIVE) 12/24/22 09:00 Urine Opiates Screen NEGATIVE (NEGATIVE) 12/24/22 14:50 Ur Oxycodone Screen NEGATIVE (NEGATIVE) 12/24/22 14:50 Urine Methadone Screen NEGATIVE (NEGATIVE) 12/24/22 14:50 Ur Propoxyphene Screen NEGATIVE (NEGATIVE) 12/24/22 14:50 Ur Barbiturates Screen NEGATIVE (NEGATIVE) 12/24/22 14:50 Ur Tricyclics Screen NEGATIVE (NEGATIVE) 12/24/22 14:50 Ur Phencyclidine Scrn NEGATIVE (NEGATIVE) 12/24/22 14:50 Ur Amphetamine Screen NEGATIVE (NEGATIVE) 12/24/22 14:50 U Methamphetamines Scrn NEGATIVE (NEGATIVE) 12/24/22 14:50 U Benzodiazepines Scrn NEGATIVE (NEGATIVE) 12/24/22 14:50 Urine Cocaine Screen NEGATIVE (NEGATIVE) 12/24/22 14:50 U Cannabinoids Screen POSITIVE (NEGATIVE) H 12/24/22 14:50 Serum Ketones MODERATE (NEGATIVE) H 12/24/22 01:45
[2022-12-27] MEDS ORDERED: INSULIN GLARGINE-YFGN 300 UNIT/3 ML PEN SUBQ SCH ×2 (08:00→21:00)
[2022-12-27] MEDS: INSULIN LISPRO 300 UNIT/3 ML PEN SUBQ SCH ×7 (08:13→20:48)
[2022-12-27] MEDS: ENOXAPARIN 40 MG/0.4 ML SYRINGE SUBQ SCH (08:49)
[2022-12-27] MEDS: amLODIPine 5 MG TABLET PO SCH (08:49)
[2022-12-27] MEDS: polyethylene glycoL 3350 17 GM PACKET PO SCH (08:49)
[2022-12-27] MEDS: lisinopriL 5 MG TABLET PO SCH (08:49)
[2022-12-27] MEDS: INSULIN GLARGINE-YFGN 300 UNIT/3 ML PEN SUBQ SCH (08:52)
[2022-12-28] MEDS: SODIUM CHLORIDE FLUSH 0.9% 10 ML SYRINGE IVP SCH ×2 (00:15→08:19)
[2022-12-28 05:18] LABS: BASOPHILS # (AUTO) 0.1 10^3/uL (0.0-0.1); BASOPHILS % (AUTO) 0.4 %; EOSINOPHILS # (AUTO) 0.3 10^3/uL (0.0-0.7); EOSINOPHILS % (AUTO) 2.1 %; HCT - HEMATOCRIT 31.3 % (42.0-52.0); HGB - HEMOGLOBIN 9.8 g/dL (14.0-18.0); LYMPHOCYTES # (AUTO) 2.6 10^3/uL (1.5-3.5); LYMPHOCYTES % (AUTO) 21.9 %; MEAN CORPUSCULAR HEMOGLOBIN 25.3 pg (27.0-31.0); MEAN CORPUSCULAR HGB CONC 31.3 g/dL (32.0-36.0); MEAN CORPUSCULAR VOLUME 80.7 fL (80.0-94.0); MEAN PLATELET VOLUME 12.8 fL (7.4-11.4); MONOCYTES # (AUTO) 0.8 10^3/uL (0.0-1.0); MONOCYTES % (AUTO) 7.1 %; NEUTROPHILS # (AUTO) 7.7 10^3/uL (1.5-6.6); NEUTROPHILS % (AUTO) 65.6 %; PLT - PLATELET COUNT 125 10^3/uL (130-450); RED BLOOD COUNT 3.88 10^6/uL (4.70-6.10); RED CELL DISTRIBUTION WIDTH 14.1 % (12.0-15.0); WHITE BLOOD COUNT 11.7 x10^3/uL (4.8-10.8)
[2022-12-28 05:29] LABS: CALCIUM 8.5 mg/dL (8.5-10.3); CREATININE 1.9 mg/dL (0.6-1.2); POTASSIUM 4.2 mmol/L (3.5-5.0)
[2022-12-28 08:09] VITALS: BP 118/67
[2022-12-28] MEDS: INSULIN GLARGINE-YFGN 300 UNIT/3 ML PEN SUBQ SCH (08:17)
[2022-12-28] MEDS: amLODIPine 5 MG TABLET PO SCH (08:18)
[2022-12-28] MEDS: ENOXAPARIN 40 MG/0.4 ML SYRINGE SUBQ SCH (08:18)
[2022-12-28] MEDS: polyethylene glycoL 3350 17 GM PACKET PO SCH (08:19)
[2022-12-28] MEDS: lisinopriL 5 MG TABLET PO SCH (08:19)
[2022-12-28] MEDS: INSULIN LISPRO 300 UNIT/3 ML PEN SUBQ SCH ×4 (08:19→12:09)
--- NOTE | 2022-12-28 12:01 | Discharge Plan ---
Discharge Plan Problem Reviewed?: Yes Disposition: Home, Self Care Condition: Fair Prescriptions: Atorvastatin Calcium 1 tab PO QPM #30 tab Blood-Glucose Meter [Glucometer] 1 each ACHS #1 each Insulin Lispro [Humalog Kwikpen U-100] 8 unit SUBQ TIDWM #1 ea Insulin Detemir [Levemir] 15 unit SUBQ QPM #1 ea Insulin Detemir [Levemir Flexpen] 30 unit SQ DAILY #1 ea lisinopriL [Lisinopril] 20 mg PO QPM #30 tablet amLODIPine [Norvasc] 1 tab PO DAILY #30 tab Lancet/Gluc Test Strip/[place] [Tempo Refill Kit] 1 each ACHS #120 packet Diet: Diabetic (Diabetic AND low salt diet) Activity Restrictions: Activity as Tolerated Shower Restrictions: No Weight Bearing: Full Weight Health Concerns: You were hospitalized with DKA, a serious complication of diabetes mellitus. This occurred because you were not using your insulin for about 2 weeks since being discharged from [facility]. You told us the reason you were not using insulin was that you were "excited from being out of [facility]". This is not realistic. We suspect it is more likely that you became dependant on receiving insulin by the staff at the [facility]. Therefore, you need to now get serious, and be responsible, and take care of yourself with your serious diagnosis of Type 1 diabetes mellitus. New prescriptions have been electronically sent to your pharmacy with orders for long-acting insulin pen, short acting insulin pen, a glucometer, finger lancets, and glucometer strips. You should check your glucose level at least every morning but preferably 3 times a day before meals, and keep a log of these numbers. Bring this information in to the doctor you see for follow-up of your diabetes, then he or she will make insulin dose adjustments. Plan of Treatment: As above. Care Goals: Improvement in symptoms and stabilization are the goals. Assessment: The patient understands and is agreeable with the plan. Additional Instructions or Follow Up instructions: You should have a hospital follow-up visit at the [facility] in 5-10 days. Then when your new health insurance starts on December 31, and a provider is assigned to you by the insurance company, go see that doctor, or you can ask the insurance company for a different doctor located on [facility], then keep seeing that provider regularly for office visits. That is the provider that can order you a Continuous Glucose Monitor. You can also come to Diabetic Education visits at the [facility] [place] [place] clinic here in this building. Follow-Up Care: [facility] - Diabetes Ed No Smoking: If you smoke, Please STOP! Call for help.
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
== END 2022-12-28 12:59 | disposition home or self-care (01) | DRG 637 ==
LOC: EDUNIT# → ED 23:58 → ICU 12-24 08:03
PROVIDERS: ADMIT Specialist; ATTEND Internal Medicine
DX: E10.10 Type 1 diabetes mellitus with ketoacidosis without coma (principal); G93.41 Metabolic encephalopathy; N17.0 Acute kidney failure with tubular necrosis; T38.3X6A Underdosing of insulin and oral hypoglycemic [antidiabetic] drugs, initial encounter; E10.22 Type 1 diabetes mellitus with diabetic chronic kidney disease; I12.9 Hypertensive chronic kidney disease with stage 1 through stage 4 chronic kidney disease, or unspecified chronic kidney disease; D72.823 Leukemoid reaction; E78.00 Pure hypercholesterolemia, unspecified; F32.A Depression, unspecified; N18.30 Chronic kidney disease, stage 3 unspecified; Z56.0 Unemployment, unspecified; Z79.4 Long term (current) use of insulin; Z80.51 Family history of malignant neoplasm of kidney; Z82.49 Family history of ischemic heart disease and other diseases of the circulatory system; Z83.3 Family history of diabetes mellitus; Z84.1 Family history of disorders of kidney and ureter; Z91.128 Patient's intentional underdosing of medication regimen for other reason
CPT/HCPCS: 36415; 71045; 76770; 80048; 80053; 80061; 80306; 81001; 82009; 82330; 82803; 82947; 83036; 83605; 83690; 83735; 84100; 84132; 84295; 84484; 85025; 87150; 93005; 96361; 96374; 97116; 97161; 97165; 97530; 99285; 99291; A9270; J1650; J1815; J2060; 83721

== ENCOUNTER 2023-12-12 17:55 | Emergency (ER) | payer MEDICAID, OTHER ==
--- NOTE | 2023-12-12 20:14 | ED Physician Documentation ---
PD HPI FEMALE - Stated complaint Stated Complaint: - Chief complaint Chief Complaint: Wound PD PAST MEDICAL HISTORY - Past Medical History Past Medical History: Yes Cardiovascular: Hypertension, High cholesterol Respiratory: None Neuro: None Endocrine/Autoimmune: Type 2 diabetes : None HEENT: None Psych: Depression Musculoskeletal: None, Other Derm: None - Past Surgical History Past Surgical History: No - Present Medications Home Medications: Ambulatory Orders Medication Instructions Recorded Confirmed Atorvastatin Calcium 1 tab PO QPM #30 tab 12/28/22 Blood-Glucose Meter [Glucometer] 1 each ACHS #1 each 12/28/22 Insulin Detemir [Levemir Flexpen] 30 unit SQ DAILY #1 ea 12/28/22 Insulin Detemir [Levemir] 15 unit SUBQ QPM #1 ea 12/28/22 Insulin Lispro [Humalog Kwikpen 8 unit SUBQ TIDWM #1 ea 12/28/22 U-100] Lancet/Gluc Test Strip/[place] 1 each ACHS #120 packet 12/28/22 [Tempo Refill Kit] amLODIPine [Norvasc] 1 tab PO DAILY #30 tab 12/28/22 lisinopriL [Lisinopril] 20 mg PO QPM #30 tablet 12/28/22 - Allergies Allergies/Adverse Reactions: Allergies Allergy/AdvReac Type Severity Reaction Status Date / Time diphenhydramine Allergy Edema Verified 12/12/23 18:04 [From Benadryl] Iodinated Contrast Media Allergy Edema Verified 12/12/23 18:04 shellfish derived Allergy Edema Verified 12/12/23 18:04 - Social History Does the pt smoke?: No Smoking Status: Former smoker Does the pt drink ETOH?: No Does the pt have substance abuse?: Yes Substance Use and Type: Marijuana - Immunizations Immunizations are current?: Yes Results - Vitals Vitals: Vital Signs - 24 hr 12/12/23 18:04 Temperature 36.7 C Heart Rate 99 Respiratory 18 Rate Blood Pressure 148/73 H O2 Saturation 100 Oxygen O2 Source Room air Departure - Departure
--- NOTE | 2023-12-12 20:15 | ED Physician Documentation ---
PD HPI MALE - Stated complaint Stated Complaint: - Chief complaint Chief Complaint: Wound - History obtained from History obtained from: Patient - Additional information Additional information: HPI From patient. Patient c/o gradual onset right groin pain and swelling x 3 weeks. No inciting event. Denies h/o similar symptoms. Denies penile d/c, denies fever. The pain and swelling have been constant and steadily progressive since onset. Pain is exacerbated with palpation, movement Review of Systems Constitutional: denies: Fever, Chills, Sweats : denies: Dysuria, Frequency, Discharge, Testicular pain Skin: denies: Rash PD PAST MEDICAL HISTORY - Past Medical History Past Medical History: Yes Cardiovascular: Hypertension, High cholesterol Respiratory: None Neuro: None Endocrine/Autoimmune: Type 2 diabetes : None HEENT: None Psych: Depression Musculoskeletal: None, Other Derm: None - Past Surgical History Past Surgical History: No - Present Medications Home Medications: Ambulatory Orders Medication Instructions Recorded Confirmed Atorvastatin Calcium 1 tab PO QPM #30 tab 12/28/22 Blood-Glucose Meter [Glucometer] 1 each ACHS #1 each 12/28/22 Insulin Detemir [Levemir Flexpen] 30 unit SQ DAILY #1 ea 12/28/22 Insulin Detemir [Levemir] 15 unit SUBQ QPM #1 ea 12/28/22 Insulin Lispro [Humalog Kwikpen 8 unit SUBQ TIDWM #1 ea 12/28/22 U-100] Lancet/Gluc Test Strip/[place] 1 each ACHS #120 packet 12/28/22 [Tempo Refill Kit] amLODIPine [Norvasc] 1 tab PO DAILY #30 tab 12/28/22 lisinopriL [Lisinopril] 20 mg PO QPM #30 tablet 12/28/22 Doxycycline Hyclate 100 mg PO BID #14 cap 12/12/23 Oxycodone HCl/Acetaminophen 1 - 2 each PO Q6H PRN #14 tablet 12/12/23 [Percocet 5-325 mg Tablet] Sulfamethox/Trimeth 800/160 1 each PO BID #14 tablet 12/12/23 [Bactrim Ds 800/160] - Allergies Allergies/Adverse Reactions: Allergies Allergy/AdvReac Type Severity Reaction Status Date / Time diphenhydramine Allergy Edema Verified 12/12/23 18:04 [From Benadryl] Iodinated Contrast Media Allergy Edema Verified 12/12/23 18:04 shellfish derived Allergy Edema Verified 12/12/23 18:04 - Social History Does the pt smoke?: No Smoking Status: Former smoker Does the pt drink ETOH?: No Does the pt have substance abuse?: Yes Substance Use and Type: Marijuana - Immunizations Immunizations are current?: Yes PD ED PE NORMAL - Vitals Vital signs reviewed: Yes - General General: Alert and oriented X 3, No acute distress, Well developed/nourished PD ED PE EXPANDED - Male Male visual: 1 - abscess, swelling, tenderness Results - Vitals Vitals: Oxygen O2 Source Room air - Labs Labs: Microbiology 12/12/23 22:44 Wound Culture - Preliminary Abscess Procedures - Abscess I&D (location) right Preparation: Chlorhexadine, Lidocaine 1% Incision: Needle aspiration, Purulent drainage, Culture obtained Other: Pt tolerated well, Dressing applied, Antibiotic prescribed PD Medical Decision Making - ED course Complexity details: considered differential, d/w patient ED course: needle drainage undertaken on this right groin abscess with modest purulent drainage. The location presents challenges to more aggressive management in the ED, but I was able to significantly reduce infectious burden with needle drainage of purulent material to allow for reevaluation in the outpatient setting. I discussed this case with on-call urology (Dr. Monique) who can reevaluate patient in outpatient setting. Purulent material is sent for culture, patient is given doxycycline and bactrim PO and e-prescribed both of these antibiotics, return precautions carefully reviewed, advised to seek follow up with urology and contact information for Dr. Monique provided on d/c sheets. Tin holloway also e-prescribed percocet Departure - Departure Disposition: 01 Home, Self Care Clinical Impression: Abscess Condition: Good Instructions: ED Abscess IandD Follow-Up: Travon Monique MD [Provider Admit Priv/Credential] - Within 3 Days Prescriptions: Sulfamethox/Trimeth 800/160 [Bactrim Ds 800/160] 1 each PO BID #14 tablet Doxycycline Hyclate 100 mg PO BID #14 cap Oxycodone HCl/Acetaminophen [Percocet 5-325 mg Tablet] 1 - 2 each PO Q6H PRN #14 tablet PRN Reason: pain Comments: I was able to remove some of the pus from your groin abscess tonight. A sample was sent to the lab and within the next 48 hours, the lab should be able to identify which bacteria is causing the infection and which antibiotics do and do not work on it. You were started on 2 different antibiotics. If the culture indicates that the bacteria is resistant to both of these antibiotics, you will receive a phone call from this emergency department regarding switching to a different antibiotic. You will not hear from us if you are on appropriate antibiotics or if the culture does not grow out bacteria. It is very important that you arrange for immediate reevaluation/follow-up in [facility] outpatient setting. I discussed your case with the on-call urologist for [facility] (Dr. Monique). His office contact information is provided elsewhere on these discharge sheets; call the office using the provided phone number in the morning to arrange for the next available appointment for reevaluation of the abscess. I have electronically submitted prescriptions for 1-week courses of both of the antibiotics as well as an as-needed prescription for Percocet (narcotic/opiate pain medication) to the [facility] pharmacy in [place] I am prescribing a short course of narcotic pain medication for you. These are potentially dangerous and addictive medications that should be used carefully. These medications may constipate you. Take an [id number]-[id number] stool softener (docusate) twice daily with plenty of water while taking these medications. If you go 24 hours without a bowel movement, take [id number]-[id number] miralax, per package instructions. Do not drink or drive while taking these medications. If you received narcotic or sedating medications while in the emergency department, do not drive for 24 hours. Store this medication in a safe, secure place and out of reach of children. It is a violation of federal law to give or sell this medication to another person or to use in a manner other than prescribed. The ED will not refill narcotic prescriptions, including prescriptions lost or stolen. To dispose of unwanted medications: 1. [facility] [address] in [place] has a medication drop box. They accept prescription medications (in pill form) Monday through Monday 9:00 a.m. to 5:00 p.m. 2. [facility] accepts prescription medications (in pill form only) for disposal year round. Call for more information. 3. Contact the [facility] for the next [facility] sponsored prescription drug collection event. , [phone], or [phone]; Discharge Date/Time: 12/12/23 23:16
[2023-12-12] MEDS: BUFFERED LIDOCAINE 10 ML SYRINGE SUBQ STA (22:05)
[2023-12-12] MEDS: lidocaine 1% 20 ML MDV SUBQ STA (22:06)
[2023-12-12] MEDS: DOXYCYCLINE 100 MG TABLET PO STA (23:11)
[2023-12-12] MEDS: SULFAMETH/TRIMETH DS 800/160 MG TABLET PO STA (23:11)
[2023-12-12 23:16] VITALS: BP 142/72; O2SAT 98
--- NOTE | 2023-12-15 14:40 | ED Physician Documentation ---
ED Addendum - Addendum Addendum: 12/15/23 14:39 Cx review, rx pcn vk 500mg po qid #40 to [facility] and asked rn to call pt and stop doxy/bactrim
== END 2023-12-12 23:16 | disposition home or self-care (01) ==
LOC: ED 17:55
DX: L02.214 Cutaneous abscess of groin (principal); I10 Essential (primary) hypertension; E78.00 Pure hypercholesterolemia, unspecified; E11.9 Type 2 diabetes mellitus without complications; Z79.899 Other long term (current) drug therapy; Z79.4 Long term (current) use of insulin; Z87.891 Personal history of nicotine dependence
CPT/HCPCS: 10060; 87070; 87205; 99283; 99284; A9270; 87077; 87181